=== PATIENT | male | born 1945 | race African-American/Black ===

== ENCOUNTER 2019-05-16 16:22 | Inpatient (IN) | payer MEDICARE, OTHER ==
[~2019-05-16] VITALS: Ht 182.9 cm; Wt 60.4 kg
[~2019-05-16 16:22] MED LIST: BENAZEPRIL HCL10 MG ORAL; CARVEDILOL3.125 MG ORAL; COUMADIN3 MG ORAL; LIPITOR40 MG ORAL; MULTIVITAMINS1 EAC6 ORAL; RANITIDINE HCL150 M2 PO; UNOBMED; WARFARIN SODIUM6 MG ORAL
[2019-05-16 20:00] VITALS: BP 137/80
[2019-05-17] VITALS: BP 146/82
[2019-05-17 04:00] VITALS: BP 129/76
[2019-05-17 07:09] LABS: BASOPHILS % (AUTO) 0.8 % (0.0-2.0); EOSINOPHILS % (AUTO) 1.7 % (0.0-3.0); HEMATOCRIT 30.3 % (42.0-52.0); HEMOGLOBIN 10.1 G/DL (14.2-18.0); LYMPHOCYTES % (AUTO) 15.7 % (20.0-45.0); MEAN CORPUSCULAR VOLUME 87 FL (80-99); MONOCYTES % (AUTO) 12.8 % (1.0-10.0); PLATELET COUNT 314 K/UL (150-450); RED CELL DISTRIBUTION WIDTH 12.9 % (11.6-14.8); WHITE BLOOD COUNT 6.7 K/UL (4.8-10.8)
[2019-05-17 07:23] LABS: ALANINE AMINOTRANSFERASE 26 U/L (12-78); ALBUMIN 3.2 G/DL (3.4-5.0); ALBUMIN/GLOBULIN RATIO 0.9 (1.0-2.7); ALKALINE PHOSPHATASE 90 U/L (46-116); ANION GAP 10 mmol/L (5-15); ASPARTATE AMINO TRANSFERASE 24 U/L (15-37); BLOOD UREA NITROGEN 12 mg/dL (7-18); CALCIUM 9.1 MG/DL (8.5-10.1); CARBON DIOXIDE 24 MMOL/L (21-32); CHLORIDE 93 MMOL/L (98-107); CREATININE 1.1 MG/DL (0.55-1.30); POTASSIUM 4.4 MMOL/L (3.5-5.1); SODIUM 126 MMOL/L (136-145)
[2019-05-17 08:00] VITALS: BP 154/91
[2019-05-17] MEDS ORDERED: Docusate 250mg cap ORAL SCH (09:00)
[2019-05-17] MEDS: Docusate 100mg cap ORAL SCH (09:36)
[2019-05-17] MEDS: Xarelto 10mg tab ORAL SCH (09:37)
[2019-05-17] MEDS: Miralax 17gm pkt ORAL SCH (09:43)
[2019-05-17 12:00] VITALS: BP 145/61
[2019-05-17 16:00] VITALS: BP 141/61
[2019-05-17 18:19] LABS: APPEARANCE,URINE CLEAR; BILIRUBIN, URINE NEGATIVE (NEGATIVE); GLUCOSE, URINE (UA) NEGATIVE (NEGATIVE); KETONES,URINE 1+ (NEGATIVE); LEUKOCYTE ESTERASE ,URINE 3+ (NEGATIVE); NITRITE,URINE POSITIVE (NEGATIVE); PH,URINE 5 (4.5-8.0); PROTEIN,URINE NEGATIVE (NEGATIVE); UROBILINOGEN,URINE NORMAL MG/DL (0.0-1.0)
[2019-05-17 18:27] LABS: COLOR,URINE YELLOW
[2019-05-17 20:00] VITALS: BP 159/89
[2019-05-17] MEDS ORDERED: Atorvastatin 20mg tab ORAL SCH (21:00)
[2019-05-18] VITALS: BP 148/84
[2019-05-18] MEDS: cefTRIAXone 1 GM in D5W 55 ML IVPB SCH (02:25)
[2019-05-18 04:00] VITALS: BP 144/88
[2019-05-18 08:00] VITALS: BP 152/99
[2019-05-18] MEDS: Xarelto 10mg tab ORAL SCH (08:56)
[2019-05-18] MEDS: Miralax 17gm pkt ORAL SCH (08:56)
[2019-05-18] MEDS: Docusate 100mg cap ORAL SCH (08:56)
--- NOTE | 2019-05-18 08:56 | General Progress Note ---
Assessment/Plan Problem List: (1) Episode of generalized weakness ICD Codes: R53.1 - Weakness SNOMED: 43156635 (2) Renal failure (ARF), acute on chronic ICD Codes: N17.9 - Renal failure (ARF), acute on chronic; N18.9 - Chronic kidney disease, unspecified SNOMED: 198212402 (3) Encephalopathy acute ICD Codes: G93.40 - Encephalopathy acute SNOMED: 2485835 (4) Episode of generalized weakness ICD Codes: R53.1 - Weakness SNOMED: 62208325 (5) Renal failure (ARF), acute on chronic ICD Codes: N17.9 - Acute kidney failure, unspecified; N18.9 - Chronic kidney disease, unspecified SNOMED: 379704073 (6) Stroke ICD Codes: I63.9 - Cerebral infarction, unspecified SNOMED: 169764978 Status: stable Assessment/Plan: speech rx await mri on xarelto pt/ot consider eeg Subjective ROS Limited/Unobtainable: No Constitutional: Reports: malaise, weakness HEENT: Reports: no symptoms Cardiovascular: Reports: no symptoms Respiratory: Reports: cough Gastrointestinal/Abdominal: Reports: no symptoms Genitourinary: Reports: no symptoms Neurologic/Psychiatric: Reports: pre-existing deficit Endocrine: Reports: no symptoms Hematologic/Lymphatic: Reports: no symptoms Allergies: Coded Allergies: No Known Allergies (Unverified , 05/27/14) All Systems: reviewed and negative except above Subjective no events. no change. no events. waiting for head ct. remains withdrawn and less verbal than baseline. labs noted. Objective Last 24 Hour Vital Signs Date Time Temp Pulse Resp B/P (MAP) Pulse Ox O2 Delivery O2 Flow Rate FiO2 05/18/19 04:00 97.0 94 18 144/88 (106) 96 05/18/19 04:00 102 05/18/19 00:00 102 05/18/19 00:00 97.4 101 19 148/84 (105) 98 05/17/19 21:00 Room Air 05/17/19 20:48 103 159/89 05/17/19 20:00 103 05/17/19 20:00 98.0 99 18 159/89 (112) 98 05/17/19 16:00 101 05/17/19 16:00 98.6 80 20 141/61 (87) 98 05/17/19 12:00 88 05/17/19 12:00 97.8 89 18 145/61 (89) 98 05/17/19 09:44 86 154/91 05/17/19 09:43 154/91 05/17/19 09:00 Room Air Intake and Output 05/17/19 05/18/19 19:00 07:00 Intake Total 240 ml Output Total 200 ml 450 ml Balance 40 ml -450 ml Intake Oral 240 ml Output Urine Total 200 ml 450 ml Laboratory Tests 05/17/19 17:40: Urine Color Yellow, Urine Appearance Clear, Urine pH 5, Urine Specific Ozan 1.015, Urine Protein Negative, Urine Glucose (UA) Negative, Urine Ketones 1+H, Urine Blood Negative, Urine Nitrite PositiveH, Urine Bilirubin Negative, Urine Urobilinogen Normal, Urine Leukocyte Esterase 3+H, Urine RBC 2-4H, Urine WBC 5- 10H, Urine Squamous Epithelial Cells None, Urine Bacteria ManyH Height (Feet): 6 Weight (Pounds): 133 General Appearance: WD/WN, alert, confused Neck: supple Cardiovascular: normal rate Respiratory/Chest: chest wall non-tender, lungs clear, normal breath sounds, no respiratory distress, no accessory muscle use Abdomen: normal bowel sounds, non tender, soft, no organomegaly Edema: no edema noted Arm (L), no edema noted Arm (R), no edema noted Leg (L), no edema noted Leg (R), no edema noted Pedal (L), no edema noted Pedal (R), no edema noted Generalized Neurologic: motor weakness Alejo Green MD May 18, 2019 08:56
--- NOTE | 2019-05-18 10:44 | Diagnostic Imaging Report ---
Indication: Headache Technique: Contiguous 5 mm thick transaxial imaging of the head obtained in a Siemens Sensation [address] scanner. Soft tissue and bone windows generated. Automatic Exposure Control was utilized. Total Dose length Product (DLP): 1354.[address] Dose Index Volume (CTDIvol): 70.38 mGy Comparison: 05/27/2014 Findings: There is moderate prominence of the ventricles, basal cisterns, and cerebral sulci consistent with atrophy. Moderate, nonspecific, white matter hypoattenuation is noted throughout the brain consistent with chronic small vessel disease. There is bioccipital encephalomalacia consistent with old infarcts also seen previously. There is no midline shift, edema, acute hemorrhage, mass effect, or abnormal extra-axial fluid collections. Bones are unremarkable. Impression: No acute intracranial bleed, mass effect or edema. Old occipital infarcts Moderate atrophy of the brain. Evidence of chronic small vessel disease involving white matter tracts. The CT scanner at [facility] is accredited by the [employer] and the scans are performed using dose optimization techniques as appropriate to a performed exam including Automatic Exposure control.
--- NOTE | 2019-05-18 11:12 | Cardiology Report ---
APPROVED REPORT EKG Measurement Heart [id number] Normal sinus rhythm Left anterior fascicular block Inferior infarct, age undetermined Anteroseptal infarct, age undetermined Abnormal ECG
[2019-05-18 12:00] VITALS: BP 138/85
[2019-05-18 16:00] VITALS: BP 155/89
--- NOTE | 2019-05-18 16:55 | History and Physical Report ---
DATE OF ADMISSION: 05/16/2019 CHIEF COMPLAINT: Altered mental status, toxic metabolic encephalopathy, rule out stroke. HISTORY OF PRESENT ILLNESS: The patient is a pleasant 74-year-old male, well known to me. He has a history of prior stroke, LV thrombus, chronic kidney disease, anemia, hypertensive heart disease, and dementia. He was noted at the snf facility to be less responsive and verbal. According to staff, they have noted that he has been unable to assist with transfer and he has required one-on-one feeding. Previously, the patient was independent with transfers and independent with eating. The patient is otherwise without complaints. He denies any weakness or numbness. His speech is fluent. PAST MEDICAL HISTORY: As above. PAST SURGICAL HISTORY: None. CURRENT MEDICATIONS: Reconciled and reviewed. ALLERGIES: None. FAMILY HISTORY: None. SOCIAL HISTORY: There is no known history of tobacco, ethanol, or drugs. REVIEW OF SYSTEMS: GENERAL: No fevers or chills. HEENT: No headaches. CARDIOPULMONARY: No chest pain and shortness of breath. GASTROINTESTINAL: No nausea or vomiting. GENITOURINARY: No urgency or frequency. MUSCULOSKELETAL: No joint pain or swelling. NEUROLOGIC: No evidence of seizures. PHYSICAL EXAMINATION: VITAL SIGNS: Temperature 97.8, pulse 89, respirations 18, blood pressure 145/61. GENERAL: The patient is a well-developed male, in no apparent distress. HEART: Regular rate and rhythm. LUNGS: Clear. ABDOMEN: Soft, nontender, and nondistended. EXTREMITIES: Without clubbing, cyanosis, or edema. The patient has hemiparesis noted. LABORATORY DATA: Sodium is 126. White count 6, hemoglobin 10. ASSESSMENT: This is an unfortunate male admitted with complaints of altered mental status, possibly secondary to hyponatremia, cannot rule out acute stroke. The patient has a history of hypertension, LV thrombus, chronic kidney disease. PLAN: Hydration with normal saline. CT scan of the head. Check urinalysis. Cardiology consultation to assist with the patient's antihypertensive regimen. We will continue the patient's Coumadin. Plan of care has been discussed with the patient's sister. Alejo Green M.D. DR: SPIKE JOB#: [id number] CC:
--- NOTE | 2019-05-18 16:56 | Progress Note ---
DATE: 05/17/2019 CARDIOLOGY PROGRESS NOTE SUBJECTIVE: Still withdrawn but alert. PHYSICAL EXAMINATION: VITAL SIGNS: Blood pressure 154/91, pulse 86, respiratory rate 18, no fevers. HEENT: Temporal wasting. Oropharynx clear. NECK: Supple. LUNGS: Clear. CARDIAC: Regular. Normal S1 and S2. A 1/6 systolic murmur at apex. ABDOMEN: Soft. No edema. LABORATORY AND DIAGNOSTIC DATA: White count 6.7, hemoglobin 10.1. Sodium 126 potassium 4.4, chloride 93, bicarb 24, BUN 12, and creatinine 1.1. Albumin 3.2. Urinalysis with 5 to 10 white cells. IMPRESSION: 1. Toxic encephalopathy. 2. Metabolic encephalopathy. 3. Urinary tract infection. 4. Cerebrovascular disease with history of prior cerebrovascular accident. 5. 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 6. History of left ventricular thrombus. PLAN: 1. Saline hydration. 2. Await EKG. 3. Continue Full anticoagulation. 4. Await results of imaging. 5. Empiric antimicrobials. 6. Avoid tight blood pressure control and orthostatic potential. 7. Check metabolic profile. John Levine M.D. DR: Dinorah JOB#: [id number] CC:
--- NOTE | 2019-05-18 16:56 | Consultation ---
DATE OF CONSULTATION: 05/16/2019 CARDIOLOGY CONSULTATION REASON FOR CONSULTATION: Altered mentation in the setting of ischemic and hypertensive cardiomyopathy. HISTORY OF PRESENT ILLNESS: This is a 74-year-old male. He has been weak and lethargic for the past several days. His appetite has been poor. He has not been as mobile as usual and has not been mobilizing at all. He does have a prior history of cerebrovascular disease and is on chronic anticoagulation due to significant cardiac disease. He was transferred to the hospital for further evaluation and management. PAST MEDICAL HISTORY: 1. Hypertension. 2. Coronary artery disease. 3. Paroxysmal atrial fibrillation. 4. Left ventricular thrombus. 5. History of DVT. 6. History of CVA. 7. COPD. 8. Dementia. 9. Anemia of chronic kidney disease. MEDICATIONS: Prior to admission, reviewed and reconciled. ALLERGIES: None. FAMILY HISTORY: Notable for hypertension. SOCIAL HISTORY: Prior smoker and social alcohol use in the past. No substance abuse. REVIEW OF SYSTEMS: No fevers or chills. No cough or sputum production. No history of elevated PSA. He is on anticoagulation with rivaroxaban. There is no history of seizures. He has had a prior stroke. His most recent echocardiogram revealed a diminished ejection fraction in the range of 45 to 50 percent. There is a history of left ventricular thrombus in the past as well as atrial arrhythmias. The patient has not had any change in bowel habits. No noted melena or bright red blood per rectum. PHYSICAL EXAMINATION: GENERAL: Alert, but withdrawn. VITAL SIGNS: Blood pressure 137/80, pulse 89, respirations 17, afebrile, and oxygen saturation on room air 100%. HEENT: Normocephalic and atraumatic. Conjunctiva pink. Arcus senilis. Oropharynx clear. NECK: Supple. LUNGS: Clear. CARDIAC: Regular rhythm and rate. Normal S1, S2. A 1/6 systolic murmur at apex. ABDOMEN: Soft and nontender. EXTREMITIES: No edema. Mild dysarthria. Gait is not assessed. IMPRESSION: 1. Encephalopathy, etiology unclear. 2. Cerebrovascular disease. 3. Coagulopathy due to rivaroxaban. 4. Ischemic and hypertensive cardiomyopathy. 5. History of atrial tachyarrhythmias. 6. History of left ventricular thrombus. 7. History of cerebrovascular accident. PLAN: 1. Obtain laboratory studies. 2. Monitor blood pressure and orthostatics. 3. Continue full anticoagulation. 4. Obtain imaging studies of the brain. 5. Review laboratory studies. 6. Further recommendations will follow. John Levine M.D. DR: EDWARD JOB#: [id number] CC:
[2019-05-18 20:00] VITALS: BP 138/107
[2019-05-18] MEDS: Atorvastatin 20mg tab ORAL SCH (22:32)
[2019-05-19] VITALS: BP 155/95
[2019-05-19] MEDS: cefTRIAXone 1 GM in D5W 55 ML IVPB SCH (00:32)
--- NOTE | 2019-05-19 01:45 | Progress Note ---
DATE: 05/18/2019 CARDIOLOGY PROGRESS NOTE SUBJECTIVE: The patient remains withdrawn, lethargic, but more alert. He has no specific complaints, but does feel weak. CAT scan of the brain revealed microvascular disease, prior occipital infarct, and no acute process. Urine culture is positive for gram-negative rods. OBJECTIVE: VITAL SIGNS: Blood pressure 138/107, pulse 105, respirations 19, afebrile. HEENT: Temporal wasting. Dysarthria. LUNGS: Diminished breath sounds. CARDIAC: Regular rhythm and rate. Normal S1, S2. A 1/6 systolic apical murmur. ABDOMEN: Soft. EXTREMITIES: No edema. IMPRESSION: 1. UTI. 2. Sepsis. 3. Toxic and metabolic encephalopathies. 4. Anemia of chronic disease. 5. Hypovolemia. 6. Hyponatremia. 7. Hypochloremia. 8. Ischemic heart disease with history of left ventricular thrombus. 9. Coagulopathy due to apixaban. PLAN: 1. Saline hydration. 2. Antimicrobials. 3. Await final cultures. 4. Continue full anticoagulation. 5. Recheck laboratory studies and metabolic profile. John Levine M.D. DR: JACKI JOB#: [id number] CC:
[2019-05-19 04:00] VITALS: BP 124/77
[2019-05-19 07:00] LABS: ALANINE AMINOTRANSFERASE 21 U/L (12-78); ALBUMIN/GLOBULIN RATIO 0.8 (1.0-2.7); ALKALINE PHOSPHATASE 81 U/L (46-116); ANION GAP 9 mmol/L (5-15); ASPARTATE AMINO TRANSFERASE 22 U/L (15-37); BILIRUBIN,TOTAL 0.8 MG/DL (0.2-1.0); BLOOD UREA NITROGEN 10 mg/dL (7-18); CALCIUM 8.8 MG/DL (8.5-10.1); CARBON DIOXIDE 24 MMOL/L (21-32); CHLORIDE 95 MMOL/L (98-107); CHOLESTEROL 95 MG/DL (< 200); CREATINE KINASE 88 U/L (26-308); HDL CHOLESTEROL 46 MG/DL (40-60); POTASSIUM 4.2 MMOL/L (3.5-5.1); SODIUM 128 MMOL/L (136-145); TRIGLYCERIDES 32 MG/DL (30-150)
[2019-05-19 07:57] VITALS: BP 145/84
[2019-05-19] MEDS: Miralax 17gm pkt ORAL SCH (08:10)
[2019-05-19] MEDS: Xarelto 10mg tab ORAL SCH (08:12)
[2019-05-19] MEDS: Docusate 100mg cap ORAL SCH (08:12)
[2019-05-19 12:00] VITALS: BP 124/74
[2019-05-19 16:00] VITALS: BP 148/84
--- NOTE | 2019-05-19 17:32 | CDS Physician Query ---
Clarification is required for compliance, coding accuracy, and to reflect severity of illness for this patient Dear Dr. Alejo Geren Date: 05/19/2019 [employer] Economist/CDS Name: Hoa Santos Clinical Documentation States: HNP: This is an unfortunate male admitted with complaints of altered mental status, possibly secondary to hyponatremia, cannot rule out acute stroke. The patient has a history of hypertension, LV thrombus, chronic kidney disease. RD notes: Increased kcal and pro needs r/t underweight status as evidenced by pt w/ BMI underweight per guidelines, @72% ideal body weight w/ generalized moderate wasting. Labs/Care Trends: BMI 18.1, Albumin 3.0, A/G ratio 0.8 Please select the most appropriate option: [] Protein/Calorie Malnutrition [] Mild [] Moderate [x] Severe [x] Hypoalbuminemia [x] Cachexia [] Underweight [] Intestinal malabsorption [] Other [] Unable to determine [] Not Applicable Present on Admission: [x] Yes [] No [] Clinically Undetermined Physician signature Date Please also document in your Progress Notes and/or Discharge Summary and indicate if the condition was present on admission. MTDD
[2019-05-19] MEDS ORDERED: Sodium Chloride 1gm Tab ORAL SCH (18:00)
[2019-05-19 20:00] VITALS: BP 163/94
[2019-05-19] MEDS ORDERED: Doxazosin 1mg Tab ORAL SCH (21:00)
[2019-05-19] MEDS: Atorvastatin 20mg tab ORAL SCH (21:23)
[2019-05-19] MEDS ORDERED: Vitamin B12 1000mcg/ml Inj IM ONE (22:15)
--- NOTE | 2019-05-19 23:45 | Progress Note ---
DATE: 05/19/2019 CARDIOLOGY PROGRESS NOTE SUBJECTIVE: Still withdrawn, lethargic, and confused, but more alert. Oral intake is improved. Monitored rhythm, sinus and sinus tachycardia. OBJECTIVE: VITAL SIGNS: Blood pressure 163/94, temperature 98, respirations 20. LUNGS: Clear. CARDIAC: Regular rhythm and rate. Normal S1, S2 with a fourth heart sound. ABDOMEN: Soft. EXTREMITIES: No edema. NEUROLOGIC: With dysarthria and bilateral weakness. DIAGNOSTIC AND LABORATORY DATA: Urine culture is positive for E. coli, sensitive to all antibiotics. Sodium 128, potassium 4.2, bicarbonate 24, BUN 10, creatinine 1, albumin 3.0. B12 468. Folic acid 12.9. TSH 2.1. IMPRESSION: 1. Hyponatremia. 2. Escherichia coli urinary tract infection with sepsis. 3. Hypochloremia. 4. Mild protein-calorie malnutrition. 5. Folic acid deficiency deficiency. 6. Low normal B12 level. 7. Anemia of chronic disease. 8. Hypertensive cardiomyopathy. 9. Ischemic heart disease. 10. History of left ventricular thrombus. 11. Multi-infarct dementia. 12. Rivaroxaban-associated coagulopathy. PLAN: 1. Vitamin supplementation added. 2. Saline hydration. 3. Salt tabs. 4. No salt restriction. 5. Advance antihypertensive control. 6. Antimicrobials. 7. Respiratory hygiene. 8. Discontinue telemetry. John Levine M.D. DR: IVY JOB#: [id number] CC:
[2019-05-20] VITALS: BP 119/63
[2019-05-20] MEDS: cefTRIAXone 1 GM in D5W 55 ML IVPB SCH (01:02)
[2019-05-20 04:00] VITALS: BP 125/66
[2019-05-20 07:59] LABS: ALANINE AMINOTRANSFERASE 19 U/L (12-78); ALBUMIN 2.8 G/DL (3.4-5.0); ALBUMIN/GLOBULIN RATIO 0.9 (1.0-2.7); ALKALINE PHOSPHATASE 71 U/L (46-116); ANION GAP 8 mmol/L (5-15); ASPARTATE AMINO TRANSFERASE 18 U/L (15-37); BILIRUBIN,TOTAL 0.6 MG/DL (0.2-1.0); BLOOD UREA NITROGEN 8 mg/dL (7-18); CALCIUM 8.5 MG/DL (8.5-10.1); CARBON DIOXIDE 22 MMOL/L (21-32); CHLORIDE 97 MMOL/L (98-107); POTASSIUM 4.1 MMOL/L (3.5-5.1); SODIUM 127 MMOL/L (136-145)
[2019-05-20 08:00] VITALS: BP 125/73
[2019-05-20] MEDS: Sodium Chloride 1gm Tab ORAL SCH ×3 (09:09→17:09)
[2019-05-20] MEDS: Carvedilol 6.25mg Tab ORAL SCH ×2 (09:09→20:51)
[2019-05-20] MEDS: Miralax 17gm pkt ORAL SCH (09:10)
[2019-05-20] MEDS: Docusate 100mg cap ORAL SCH (09:10)
[2019-05-20] MEDS: Xarelto 10mg tab ORAL SCH (09:10)
--- NOTE | 2019-05-20 09:12 | General Progress Note ---
Assessment/Plan Problem List: (1) Episode of generalized weakness ICD Codes: R53.1 - Weakness SNOMED: 97660874 (2) Renal failure (ARF), acute on chronic ICD Codes: N17.9 - Renal failure (ARF), acute on chronic; N18.9 - Chronic kidney disease, unspecified SNOMED: 653005420 (3) Encephalopathy acute ICD Codes: G93.40 - Encephalopathy acute SNOMED: 9223937 (4) Episode of generalized weakness ICD Codes: R53.1 - Weakness SNOMED: 42335001 (5) Renal failure (ARF), acute on chronic ICD Codes: N17.9 - Acute kidney failure, unspecified; N18.9 - Chronic kidney disease, unspecified SNOMED: 992171513 (6) Stroke ICD Codes: I63.9 - Cerebral infarction, unspecified SNOMED: 824823488 Status: stable Assessment/Plan: speech rx ct neg on xarelto pt/ot hypertonic saline added consider eeg Subjective ROS Limited/Unobtainable: Yes Constitutional: Reports: malaise, weakness HEENT: Reports: no symptoms Cardiovascular: Reports: no symptoms Respiratory: Reports: no symptoms Gastrointestinal/Abdominal: Reports: difficulty swallowing Genitourinary: Reports: no symptoms Neurologic/Psychiatric: Reports: seizure Endocrine: Reports: no symptoms Hematologic/Lymphatic: Reports: anemia Allergies: Coded Allergies: No Known Allergies (Unverified , 05/27/14) All Systems: reviewed and negative except above Subjective no events. no change. no events. head ct neg. remains withdrawn and less verbal than baseline. labs noted. Na not any better. Objective Last 24 Hour Vital Signs Date Time Temp Pulse Resp B/P (MAP) Pulse Ox O2 Delivery O2 Flow Rate FiO2 05/20/19 08:00 97.5 92 18 125/73 (90) 98 05/20/19 04:00 87 05/20/19 04:00 98.2 99 19 125/66 (85) 98 05/20/19 00:00 89 05/20/19 00:00 98.3 103 18 119/63 (81) 97 05/19/19 21:24 90 163/94 05/19/19 21:00 Room Air 05/19/19 20:00 90 05/19/19 20:00 98.1 98 20 163/94 (117) 100 05/19/19 16:00 84 05/19/19 16:00 98.0 69 18 148/84 (105) 99 05/19/19 12:00 98.1 77 18 124/74 (91) 99 05/19/19 12:00 82 Intake and Output 05/19/19 05/20/19 19:00 07:00 Intake Total 440 ml 120 ml Output Total 1000 ml Balance 440 ml -880 ml Intake Oral 120 ml Other 440 ml Output Urine Total 1000 ml Laboratory Tests 05/20/19 07:20: Sodium Level 127L, Potassium Level 4.1, Chloride Level 97L, Carbon Dioxide Level 22, Anion Gap 8, Blood Urea Nitrogen 8, Creatinine 1.0, Estimat Glomerular Filtration Rate , Glucose Level 73L, Calcium Level 8.5, Total Bilirubin 0.6, Aspartate Amino Transf (AST/SGOT) 18, Alanine Aminotransferase ( ALT/SGPT) 19, Alkaline Phosphatase 71, Total Protein 6.0L, Albumin 2.8L, Globulin 3.2, Albumin/Globulin Ratio 0.9L Height (Feet): 6 Weight (Pounds): 133 General Appearance: WD/WN, alert, confused Neck: supple Cardiovascular: normal rate Respiratory/Chest: chest wall non-tender, lungs clear, normal breath sounds Edema: no edema noted Arm (L), no edema noted Arm (R), no edema noted Leg (L), no edema noted Leg (R), no edema noted Pedal (L), no edema noted Pedal (R), no edema noted Generalized Neurologic: motor weakness Alejo Green MD May 20, 2019 09:12
[2019-05-20 12:00] VITALS: BP 121/68
[2019-05-20 16:00] VITALS: BP 126/73
[2019-05-20 20:00] VITALS: BP 130/81
[2019-05-20] MEDS: Doxazosin 1mg Tab ORAL SCH (20:51)
[2019-05-20] MEDS: Atorvastatin 20mg tab ORAL SCH (20:51)
[2019-05-21] VITALS: BP 126/73
--- NOTE | 2019-05-21 03:30 | Progress Note ---
DATE: 05/20/2019 CARDIOLOGY PROGRESS NOTE SUBJECTIVE: The patient remains withdrawn. Still less verbal than baseline. Abnormal laboratory studies persists. OBJECTIVE: VITAL SIGNS: Blood pressure 125/73, pulse 92, respirations 18, and afebrile. GENERAL: Slow response time. Dysarthria. Bilateral motor dysfunction. LUNGS: Clear. CARDIAC: Regular. Normal S1, S2 with a 1/6 systolic apical murmur. ABDOMEN: Soft. EXTREMITIES: No edema. LABORATORY DATA: Sodium 127, potassium 4.1, chloride 97, bicarb 22, BUN 8, and creatinine 1. IMPRESSION: 1. Persistent hyponatremia with euvolemia. 2. Ischemic cardiomyopathy. 3. History of left ventricular thrombus. 4. Toxic and metabolic encephalopathy. 5. B12 and folate deficiencies. 6. Urinary tract infection with probable sepsis. PLAN: 1. Agree with 3% saline trial. 2. Check urine studies. 3. Continue current cardiovascular regimen. 4. Empiric antimicrobials for urinary tract infection. 5. Continue full anticoagulation. 6. Added vitamin supplementation. John Levine M.D. DR: EDWARD JOB#: [id number] CC:
[2019-05-21 04:00] VITALS: BP 131/73
--- NOTE | 2019-05-21 06:54 | General Progress Note ---
Assessment/Plan Problem List: (1) Episode of generalized weakness ICD Codes: R53.1 - Weakness SNOMED: 11136372 (2) Renal failure (ARF), acute on chronic ICD Codes: N17.9 - Renal failure (ARF), acute on chronic; N18.9 - Chronic kidney disease, unspecified SNOMED: 060325307 (3) Encephalopathy acute ICD Codes: G93.40 - Encephalopathy acute SNOMED: 1123098 (4) Episode of generalized weakness ICD Codes: R53.1 - Weakness SNOMED: 67498841 (5) Renal failure (ARF), acute on chronic ICD Codes: N17.9 - Acute kidney failure, unspecified; N18.9 - Chronic kidney disease, unspecified SNOMED: 327691087 (6) Stroke ICD Codes: I63.9 - Cerebral infarction, unspecified SNOMED: 944965243 Status: stable Assessment/Plan: speech rx/pt/ot ct neg on xarelto hypertonic saline given yesterday urine na follow up labs-pending. ?dc planning pending review of labs Subjective ROS Limited/Unobtainable: No Constitutional: Reports: malaise, weakness HEENT: Reports: no symptoms Cardiovascular: Reports: no symptoms Respiratory: Reports: no symptoms Gastrointestinal/Abdominal: Reports: no symptoms Genitourinary: Reports: no symptoms Neurologic/Psychiatric: Reports: pre-existing deficit Endocrine: Reports: no symptoms Hematologic/Lymphatic: Reports: no symptoms Allergies: Coded Allergies: No Known Allergies (Unverified , 05/27/14) All Systems: reviewed and negative except above Subjective remains withdrawn. slightly more verbal. still not at baseline. labs pending this am. Objective Last 24 Hour Vital Signs Date Time Temp Pulse Resp B/P (MAP) Pulse Ox O2 Delivery O2 Flow Rate FiO2 05/21/19 04:00 99.1 86 18 131/73 (92) 95 05/21/19 00:00 98.5 94 18 126/73 (90) 98 05/20/19 21:00 Room Air 05/20/19 20:51 89 130/81 05/20/19 20:00 99.2 89 20 130/81 (97) 98 05/20/19 16:00 97.7 78 20 126/73 (90) 99 05/20/19 12:00 97.5 87 20 121/68 (85) 99 05/20/19 09:09 92 125/73 05/20/19 09:09 125/73 05/20/19 09:00 Room Air 05/20/19 08:00 97.5 92 18 125/73 (90) 98 Intake and Output 05/20/19 05/21/19 18:59 06:59 Intake Total 360 ml 825 ml Output Total 450 ml 625 ml Balance -90 ml 200 ml Intake Oral 360 ml IV Total 825 ml Output Urine Total 450 ml 625 ml # Voids 4 Laboratory Tests 05/20/19 07:20: Sodium Level 127L, Potassium Level 4.1, Chloride Level 97L, Carbon Dioxide Level 22, Anion Gap 8, Blood Urea Nitrogen 8, Creatinine 1.0, Estimat Glomerular Filtration Rate , Glucose Level 73L, Calcium Level 8.5, Total Bilirubin 0.6, Aspartate Amino Transf (AST/SGOT) 18, Alanine Aminotransferase ( ALT/SGPT) 19, Alkaline Phosphatase 71, Total Protein 6.0L, Albumin 2.8L, Globulin 3.2, Albumin/Globulin Ratio 0.9L Height (Feet): 6 Weight (Pounds): 133 Objective General Appearance: WD/WN, alert, confused Neck: supple Cardiovascular: normal rate Respiratory/Chest: chest wall non-tender, lungs clear, normal breath sounds Edema: no edema noted Arm (L), no edema noted Arm (R), no edema noted Leg (L), no edema noted Leg (R), no edema noted Pedal (L), no edema noted Pedal (R), no edema noted Generalized Neurologic: motor weakness Alejo Green MD May 21, 2019 06:54
[2019-05-21 07:44] LABS: ANION GAP 10 mmol/L (5-15); BLOOD UREA NITROGEN 7 mg/dL (7-18); CALCIUM 8.6 MG/DL (8.5-10.1); CARBON DIOXIDE 22 MMOL/L (21-32); CHLORIDE 100 MMOL/L (98-107); POTASSIUM 4.1 MMOL/L (3.5-5.1); SODIUM 132 MMOL/L (136-145)
[2019-05-21 08:00] VITALS: BP 130/77
[2019-05-21] MEDS: Docusate 100mg cap ORAL SCH (09:01)
[2019-05-21] MEDS: Xarelto 10mg tab ORAL SCH (09:02)
[2019-05-21] MEDS: Sodium Chloride 1gm Tab ORAL SCH ×3 (09:02→17:13)
[2019-05-21] MEDS: Carvedilol 6.25mg Tab ORAL SCH (09:02)
[2019-05-21] MEDS: Miralax 17gm pkt ORAL SCH (09:02)
[2019-05-21 12:00] VITALS: BP 136/80
[2019-05-21 16:00] VITALS: BP 129/76
[2019-05-21 20:00] VITALS: BP 147/76
--- NOTE | 2019-05-21 22:30 | Progress Note ---
DATE: 05/21/2019 CARDIOLOGY PROGRESS NOTE SUBJECTIVE: The patient received 3% saline yesterday. He is slightly more alert, but still not at baseline with increased lethargy. No shortness of breath. OBJECTIVE: VITAL SIGNS: Blood pressure 131/73, pulse 86, respirations 18, and temperature 99.1. GENERAL: Dysarthria. LUNGS: Clear. CARDIAC: Regular, normal S1, S2 with a 1/6 systolic murmur at apex. ABDOMEN: Soft. EXTREMITIES: No edema. LABORATORY DATA: Sodium 133, potassium 4.1, BUN 7, and creatinine 1. IMPRESSION: No progress. PLAN: 1. Continue hypotonic IV fluids. 2. Antimicrobials. 3. Recheck lab studies. 4. Titrate antihypertensive regimen. 5. Cardioembolic prophylaxis with rivaroxaban. John Levine M.D. DR: ERAN JOB#: [id number] CC:
[2019-05-22] VITALS: BP 128/63
[2019-05-22] MEDS: cefTRIAXone 1 GM in D5W 55 ML IVPB SCH ×3 (00:18→23:13)
[2019-05-22] MEDS: Doxazosin 1mg Tab ORAL SCH ×2 (00:18→21:00)
[2019-05-22] MEDS: Atorvastatin 20mg tab ORAL SCH ×2 (00:19→22:57)
[2019-05-22] MEDS: Carvedilol 6.25mg Tab ORAL SCH ×3 (00:19→22:56)
[2019-05-22 04:00] VITALS: BP 128/70
[2019-05-22 08:00] VITALS: BP 117/69
[2019-05-22] MEDS: Miralax 17gm pkt ORAL SCH (08:37)
[2019-05-22] MEDS: Xarelto 10mg tab ORAL SCH (08:37)
[2019-05-22] MEDS: Docusate 100mg cap ORAL SCH (08:38)
[2019-05-22] MEDS: Sodium Chloride 1gm Tab ORAL SCH ×3 (08:38→17:48)
[2019-05-22 08:54] LABS: BASOPHILS % (AUTO) 1.4 % (0.0-2.0); EOSINOPHILS % (AUTO) 2.7 % (0.0-3.0); HEMATOCRIT 28.2 % (42.0-52.0); HEMOGLOBIN 9.4 G/DL (14.2-18.0); LYMPHOCYTES % (AUTO) 13.4 % (20.0-45.0); MEAN CORPUSCULAR VOLUME 87 FL (80-99); MONOCYTES % (AUTO) 10.7 % (1.0-10.0); NEUTROPHILS % (AUTO) 71.9 % (45.0-75.0); PLATELET COUNT 284 K/UL (150-450); RED BLOOD COUNT 3.25 M/UL (4.70-6.10); RED CELL DISTRIBUTION WIDTH 12.7 % (11.6-14.8); WHITE BLOOD COUNT 6.4 K/UL (4.8-10.8)
[2019-05-22 09:01] LABS: AMMONIA 20 umol/L (11-32)
[2019-05-22 09:12] LABS: ALANINE AMINOTRANSFERASE 18 U/L (12-78); ALBUMIN 2.7 G/DL (3.4-5.0); ALBUMIN/GLOBULIN RATIO 0.8 (1.0-2.7); ALKALINE PHOSPHATASE 74 U/L (46-116); ANION GAP 8 mmol/L (5-15); ASPARTATE AMINO TRANSFERASE 20 U/L (15-37); BILIRUBIN,TOTAL 0.7 MG/DL (0.2-1.0); BLOOD UREA NITROGEN 5 mg/dL (7-18); CALCIUM 8.4 MG/DL (8.5-10.1); CARBON DIOXIDE 24 MMOL/L (21-32); CHLORIDE 97 MMOL/L (98-107); CREATININE 0.9 MG/DL (0.55-1.30); SODIUM 129 MMOL/L (136-145)
[2019-05-22 12:00] VITALS: BP 125/76
--- NOTE | 2019-05-22 13:39 | General Progress Note ---
Assessment/Plan Problem List: (1) Episode of generalized weakness ICD Codes: R53.1 - Weakness SNOMED: 06465430 (2) Renal failure (ARF), acute on chronic ICD Codes: N17.9 - Renal failure (ARF), acute on chronic; N18.9 - Chronic kidney disease, unspecified SNOMED: 254877033 (3) Encephalopathy acute ICD Codes: G93.40 - Encephalopathy acute SNOMED: 8627027 (4) Episode of generalized weakness ICD Codes: R53.1 - Weakness SNOMED: 03211260 (5) Renal failure (ARF), acute on chronic ICD Codes: N17.9 - Acute kidney failure, unspecified; N18.9 - Chronic kidney disease, unspecified SNOMED: 304045246 (6) Stroke ICD Codes: I63.9 - Cerebral infarction, unspecified SNOMED: 369614553 Status: stable Assessment/Plan: speech rx/pt/ot ct neg on xarelto hypertonic saline ordered urine na oral sodium chloride repeat labs in am Subjective ROS Limited/Unobtainable: No Constitutional: Reports: malaise, weakness HEENT: Reports: no symptoms Cardiovascular: Reports: no symptoms Respiratory: Reports: no symptoms Gastrointestinal/Abdominal: Reports: no symptoms Genitourinary: Reports: no symptoms Neurologic/Psychiatric: Reports: pre-existing deficit Endocrine: Reports: no symptoms Hematologic/Lymphatic: Reports: anemia Allergies: Coded Allergies: No Known Allergies (Unverified , 05/27/14) All Systems: reviewed and negative except above Subjective remains withdrawn. slightly more verbal. still not at baseline. na worse this am Objective Last 24 Hour Vital Signs Date Time Temp Pulse Resp B/P (MAP) Pulse Ox O2 Delivery O2 Flow Rate FiO2 05/22/19 12:00 96.6 82 18 125/76 (92) 100 05/22/19 09:00 Room Air 05/22/19 08:38 78 117/69 05/22/19 08:38 117/69 05/22/19 08:00 97.0 78 18 117/69 (85) 100 05/22/19 04:00 98.2 80 18 128/70 (89) 100 05/22/19 00:19 78 147/76 05/22/19 00:00 98.7 79 18 128/63 (84) 99 05/21/19 21:00 Room Air 05/21/19 20:00 98.3 78 20 147/76 (99) 99 05/21/19 16:00 98.4 82 18 129/76 (93) 97 Intake and Output 05/21/19 05/22/19 18:59 06:59 Intake Total 935 ml 900 ml Balance 935 ml 900 ml Intake Oral 860 ml IV Total 75 ml 900 ml # Voids 7 Laboratory Tests 05/22/19 08:30: White Blood Count 6.4, Red Blood Count 3.25L, Hemoglobin 9.4L, Hematocrit 28.2L , Mean Corpuscular Volume 87, Mean Corpuscular Hemoglobin 29.0, Mean Corpuscular Hemoglobin Concent 33.4, Red Cell Distribution Width 12.7, Platelet Count 284, Mean Platelet Volume 5.9L, Neutrophils (%) (Auto) 71.9, Lymphocytes ( %) (Auto) 13.4L, Monocytes (%) (Auto) 10.7H, Eosinophils (%) (Auto) 2.7, Basophils (%) (Auto) 1.4, Sodium Level 129L, Potassium Level 4.0, Chloride Level 97L, Carbon Dioxide Level 24, Anion Gap 8, Blood Urea Nitrogen 5L, Creatinine 0.9, Estimat Glomerular Filtration Rate , Glucose Level 81, Calcium Level 8.4L, Magnesium Level 1.4L, Total Bilirubin 0.7, Aspartate Amino Transf ( AST/SGOT) 20, Alanine Aminotransferase (ALT/SGPT) 18, Alkaline Phosphatase 74, Ammonia 20, Pro-B-Type Natriuretic Peptide 2875H, Total Protein 6.0L, Albumin 2.7L, Globulin 3.3, Albumin/Globulin Ratio 0.8L Height (Feet): 6 Weight (Pounds): 133 Objective General Appearance: WD/WN, alert, confused Neck: supple Cardiovascular: normal rate Respiratory/Chest: chest wall non-tender, lungs clear, normal breath sounds Edema: no edema noted Arm (L), no edema noted Arm (R), no edema noted Leg (L), no edema noted Leg (R), no edema noted Pedal (L), no edema noted Pedal (R), no edema noted Generalized Neurologic: motor weakness Alejo Green MD May 22, 2019 13:39
[2019-05-22] MEDS ORDERED: NaCl 3% 500ml 250 ML IV ONE (14:30)
[2019-05-22 16:00] VITALS: BP 144/85
[2019-05-22 20:00] VITALS: BP 122/62
[2019-05-23] VITALS: BP 112/55
[2019-05-23 04:00] VITALS: BP 103/56
[2019-05-23 07:55] LABS: ANION GAP 8 mmol/L (5-15); BLOOD UREA NITROGEN 6 mg/dL (7-18); CALCIUM 8.2 MG/DL (8.5-10.1); CARBON DIOXIDE 24 MMOL/L (21-32); CHLORIDE 104 MMOL/L (98-107); SODIUM 136 MMOL/L (136-145)
[2019-05-23 08:00] VITALS: BP 135/62
[2019-05-23] MEDS: Docusate 100mg cap ORAL SCH (08:36)
[2019-05-23] MEDS: Miralax 17gm pkt ORAL SCH (08:40)
[2019-05-23] MEDS: Xarelto 10mg tab ORAL SCH (08:41)
[2019-05-23] MEDS: Carvedilol 6.25mg Tab ORAL SCH ×2 (08:41→20:28)
[2019-05-23] MEDS: Sodium Chloride 1gm Tab ORAL SCH ×3 (08:42→17:10)
[2019-05-23 12:00] VITALS: BP 133/70
--- NOTE | 2019-05-23 12:01 | General Progress Note ---
Assessment/Plan Problem List: (1) Episode of generalized weakness ICD Codes: R53.1 - Weakness SNOMED: 28391289 (2) Renal failure (ARF), acute on chronic ICD Codes: N17.9 - Renal failure (ARF), acute on chronic; N18.9 - Chronic kidney disease, unspecified SNOMED: 906900717 (3) Encephalopathy acute ICD Codes: G93.40 - Encephalopathy acute SNOMED: 7908868 (4) Episode of generalized weakness ICD Codes: R53.1 - Weakness SNOMED: 65611833 (5) Renal failure (ARF), acute on chronic ICD Codes: N17.9 - Acute kidney failure, unspecified; N18.9 - Chronic kidney disease, unspecified SNOMED: 684143060 (6) Stroke ICD Codes: I63.9 - Cerebral infarction, unspecified SNOMED: 506432027 Status: stable Assessment/Plan: speech rx/pt/ot ct neg on xarelto oral nacl dc planning Subjective ROS Limited/Unobtainable: No Constitutional: Reports: malaise, weakness HEENT: Reports: no symptoms Cardiovascular: Reports: no symptoms Respiratory: Reports: no symptoms Gastrointestinal/Abdominal: Reports: no symptoms Genitourinary: Reports: no symptoms Neurologic/Psychiatric: Reports: depressed, pre-existing deficit Endocrine: Reports: no symptoms Hematologic/Lymphatic: Reports: anemia Allergies: Coded Allergies: No Known Allergies (Unverified , 05/27/14) All Systems: reviewed and negative except above Subjective remains withdrawn. slightly more verbal. still not at baseline. NA level better now. Objective Last 24 Hour Vital Signs Date Time Temp Pulse Resp B/P (MAP) Pulse Ox O2 Delivery O2 Flow Rate FiO2 05/23/19 09:00 Room Air 05/23/19 08:42 135/62 05/23/19 08:41 69 135/62 05/23/19 08:00 98.4 69 20 135/62 (86) 97 05/23/19 04:00 99.2 84 18 103/56 (72) 97 05/23/19 00:00 98.8 79 17 112/55 (74) 99 05/22/19 22:56 74 122/62 05/22/19 21:00 Room Air 05/22/19 20:00 98.0 74 17 122/62 (82) 99 05/22/19 16:00 97.4 88 20 144/85 (104) 100 05/22/19 12:00 96.6 82 18 125/76 (92) 100 Intake and Output 05/22/19 05/23/19 18:59 06:59 Intake Total 1230 ml 120 ml Output Total 300 ml 550 ml Balance 930 ml -430 ml Intake Oral 480 ml 120 ml IV Total 750 ml Output Urine Total 300 ml 550 ml # Voids 7 # Bowel Movements 1 Laboratory Tests 05/23/19 06:55: Sodium Level 136, Potassium Level 4.0, Chloride Level 104, Carbon Dioxide Level 24, Anion Gap 8, Blood Urea Nitrogen 6L, Creatinine 1.0, Estimat Glomerular Filtration Rate , Glucose Level 81, Calcium Level 8.2L Height (Feet): 6 Weight (Pounds): 133 Objective General Appearance: WD/WN, alert, confused Neck: supple Cardiovascular: normal rate Respiratory/Chest: chest wall non-tender, lungs clear, normal breath sounds Edema: no edema noted Arm (L), no edema noted Arm (R), no edema noted Leg (L), no edema noted Leg (R), no edema noted Pedal (L), no edema noted Pedal (R), no edema noted Generalized Neurologic: motor weakness Alejo Green MD May 23, 2019 12:01
[2019-05-23 16:00] VITALS: BP 106/56
[2019-05-23 20:00] VITALS: BP 137/79
[2019-05-23] MEDS: Atorvastatin 20mg tab ORAL SCH (20:28)
[2019-05-23] MEDS: Doxazosin 1mg Tab ORAL SCH (20:29)
[2019-05-24] VITALS: BP 142/84
[2019-05-24 04:00] VITALS: BP 142/81
[2019-05-24] MEDS ORDERED: CARDURA1 MG ORAL (07:45)
[2019-05-24] MEDS ORDERED: SODIUM CHLORIDE1 GM ORAL (07:45)
[2019-05-24] MEDS ORDERED: COREG6.25 MG ORAL (07:45)
[2019-05-24] MEDS ORDERED: LIPITOR20 MG ORAL (07:45)
[2019-05-24] MEDS ORDERED: BENAZEPRIL HCL40 MG ORAL (07:45)
[2019-05-24 08:00] VITALS: BP 133/79
[2019-05-24] MEDS: Miralax 17gm pkt ORAL SCH (08:36)
[2019-05-24] MEDS: Carvedilol 6.25mg Tab ORAL SCH ×2 (08:36→21:00)
[2019-05-24] MEDS: Sodium Chloride 1gm Tab ORAL SCH ×3 (08:36→17:12)
[2019-05-24] MEDS: Docusate 100mg cap ORAL SCH (08:36)
[2019-05-24] MEDS: Xarelto 10mg tab ORAL SCH (08:37)
[2019-05-24 12:00] VITALS: BP 126/73
[2019-05-24 16:00] VITALS: BP 111/65
[2019-05-24 20:00] VITALS: BP 107/50
[2019-05-24] MEDS: Doxazosin 1mg Tab ORAL SCH (20:35)
[2019-05-24] MEDS: Atorvastatin 20mg tab ORAL SCH (20:35)
[2019-05-24] MEDS: cefTRIAXone 1 GM in D5W 55 ML IVPB SCH (22:06)
[2019-05-25] VITALS: BP 119/57
--- NOTE | 2019-05-25 01:15 | Discharge Summary ---
DATE OF ADMISSION: 05/20/2019 DATE OF DISCHARGE: 05/24/2019 ADMISSION DIAGNOSES: 1. Altered mental status. 2. Possible stroke. 3. Toxic metabolic encephalopathy. 4. Hypertension. 5. History of LV thrombus. DISCHARGE DIAGNOSES: 1. Altered mental status. 2. Possible stroke. 3. Toxic metabolic encephalopathy. 4. Hypertension. 5. History of LV thrombus. HOSPITAL COURSE: The patient is a pleasant male admitted with complaints of altered mental status, with initial concern was for stroke but head CT showed no evidence of any acute stroke. The patient was noted to be hyponatremic. He was given IV fluids without any improvement. He was placed on hypertonic saline. His sodium did improve, mental status seemed to improve with correction of his hyponatremia. On discharge, he was stable. The patient was [facility] to [facility] in stable condition. He will be followed up there in one to two days. DISCHARGE MEDICATIONS: Please see discharge medication list for discharge medications. DIET: Cardiac diet. ACTIVITIES: Ad-sydney. Alejo Green M.D. DR: SHANNON JOB#: [id number] CC:
--- NOTE | 2019-05-25 02:30 | Progress Note ---
DATE: 05/22/2019 CARDIOLOGY PROGRESS NOTE LATE ENTRY SUBJECTIVE: Withdrawn, more verbal, still with abnormal laboratory studies. OBJECTIVE: VITAL SIGNS: Blood pressure 128/70, heart rate 78, and respiratory rate 18. GENERAL: Baseline neurologic deficits with dysarthria. LUNGS: Clear. CARDIAC: Regular. Normal S1 and S2. ABDOMEN: Soft. EXTREMITIES: No edema. LABORATORY DATA: White count 6.4 and hemoglobin 9.4. Sodium 129, potassium 4, BUN 5, creatinine 0.9, and magnesium 1.4. IMPRESSION: 1. Hyponatremia. 2. Hypomagnesemia. 3. Metabolic encephalopathy. 4. Ischemic cardiomyopathy. 5. History of left ventricular thrombus. PLAN: 1. Additional 3% saline ____ magnesium replacement to follow. 2. Full anticoagulation for cardioembolic prophylaxis. 3. Continue current anti-failure regimen. John Levine M.D. DR: EDWIN JOB#: [id number] CC:
[2019-05-25 04:00] VITALS: BP 134/73
[2019-05-25 08:00] VITALS: BP 135/70
[2019-05-25] MEDS: Miralax 17gm pkt ORAL SCH (09:00)
[2019-05-25] MEDS: Docusate 100mg cap ORAL SCH (09:31)
[2019-05-25] MEDS: Xarelto 10mg tab ORAL SCH (09:31)
[2019-05-25] MEDS: Carvedilol 6.25mg Tab ORAL SCH (09:31)
[2019-05-25] MEDS: Sodium Chloride 1gm Tab ORAL SCH ×2 (09:45→13:00)
--- NOTE | 2019-05-25 10:37 | General Progress Note ---
Assessment/Plan Problem List: (1) Episode of generalized weakness ICD Codes: R53.1 - Weakness SNOMED: 94383482 (2) Renal failure (ARF), acute on chronic ICD Codes: N17.9 - Renal failure (ARF), acute on chronic; N18.9 - Chronic kidney disease, unspecified SNOMED: 675280690 (3) Encephalopathy acute ICD Codes: G93.40 - Encephalopathy acute SNOMED: 1910220 (4) Episode of generalized weakness ICD Codes: R53.1 - Weakness SNOMED: 06111887 (5) Renal failure (ARF), acute on chronic ICD Codes: N17.9 - Acute kidney failure, unspecified; N18.9 - Chronic kidney disease, unspecified SNOMED: 812749367 (6) Stroke ICD Codes: I63.9 - Cerebral infarction, unspecified SNOMED: 891689323 Status: stable Assessment/Plan: speech rx/pt/ot ct neg on xarelto oral nacl dc planning Subjective ROS Limited/Unobtainable: No Constitutional: Reports: malaise, weakness HEENT: Reports: no symptoms Cardiovascular: Reports: no symptoms Respiratory: Reports: no symptoms Gastrointestinal/Abdominal: Reports: no symptoms Genitourinary: Reports: no symptoms Neurologic/Psychiatric: Reports: pre-existing deficit Endocrine: Reports: no symptoms Hematologic/Lymphatic: Reports: no symptoms Allergies: Coded Allergies: No Known Allergies (Unverified , 05/27/14) All Systems: reviewed and negative except above Subjective remains withdrawn. slightly more verbal. still not at baseline. NA level better now. was not discharged yesterday because no intake available at [facility] Objective Last 24 Hour Vital Signs Date Time Temp Pulse Resp B/P (MAP) Pulse Ox O2 Delivery O2 Flow Rate FiO2 05/25/19 09:31 70 135/70 05/25/19 09:31 135/70 05/25/19 08:25 Room Air 05/25/19 08:00 97.6 70 18 135/70 (91) 92 05/25/19 04:00 98.1 81 20 134/73 (93) 99 05/25/19 00:00 98.2 80 20 119/57 (77) 98 05/24/19 21:00 Room Air 05/24/19 21:00 78 104/52 05/24/19 20:00 98.6 77 20 107/50 (69) 99 05/24/19 16:00 98.5 86 20 111/65 (80) 98 05/24/19 12:00 97.6 85 20 126/73 (90) 98 Intake and Output 05/24/19 05/25/19 19:00 07:00 Intake Total 360 ml 60 ml Output Total 250 ml 360 ml Balance 110 ml -300 ml Intake Oral 360 ml 60 ml Output Urine Total 250 ml 360 ml # Voids 3 1 # Bowel Movements 1 Height (Feet): 6 Weight (Pounds): 133 Objective General Appearance: WD/WN, alert, confused Neck: supple Cardiovascular: normal rate Respiratory/Chest: chest wall non-tender, lungs clear, normal breath sounds Edema: no edema noted Arm (L), no edema noted Arm (R), no edema noted Leg (L), no edema noted Leg (R), no edema noted Pedal (L), no edema noted Pedal (R), no edema noted Generalized Neurologic: motor weakness Alejo Green MD May 25, 2019 10:37
[2019-05-25 12:00] VITALS: BP 107/56
--- NOTE | 2019-05-25 21:00 | Progress Note ---
DATE: 05/24/2019 CARDIOLOGY PROGRESS NOTE SUBJECTIVE: The patient has less confusion and is close to the baseline. Vitals are stable. OBJECTIVE: VITAL SIGNS: Blood pressure 126/73, heart rate 85, respiratory rate 20. LUNGS: Clear. CARDIAC: Regular. Normal S1, S2 with a 1/6 systolic murmur at the apex. ABDOMEN: Soft. EXTREMITIES: No edema. IMPRESSION: 1. UTI with sepsis and associated toxic and metabolic encephalopathy. 2. Ischemic cardiomyopathy with history of left ventricular thrombus. 3. Coagulopathy due to rivaroxaban. 4. Cerebrovascular disease with dementia. 5. Hyponatremia, improved. PLAN: 1. Continue salt tabs. 2. Continue current antihypertensive regimen. 3. Monitor electrolytes. 4. Maintain full anticoagulation. Jhon Levine M.D. DRJoanne Mendez JOB#: [id number] CC:
--- NOTE | 2019-05-25 22:00 | Progress Note ---
DATE: 05/25/2019 CARDIOLOGY PROGRESS NOTE SUBJECTIVE: Discharge planning noted. The patient without shortness of breath. OBJECTIVE: VITAL SIGNS: Stable. Blood pressure 135/70, pulse 70, and respirations 18. LUNGS: Clear. CARDIAC: Regular. No new murmur. ABDOMEN: Soft. EXTREMITIES: No edema. IMPRESSION: 1. Toxic and metabolic encephalopathies, improved. 2. UTI with sepsis, recovered. 3. Acute on chronic diastolic congestive heart failure, compensated. 4. Moderate protein-calorie malnutrition, on supplements. 5. Hyponatremia, improved. 6. Euvolemia noted. 7. Hypomagnesemia, status post replacement therapy. PLAN: 1. Stable for further recovery and monitoring at [facility] facility. 2. Discharge medication regimen reviewed. John Levine M.D. DR: EDWARD JOB#: [id number] CC:
--- NOTE | 2019-05-25 22:45 | Progress Note ---
DATE: 05/23/2019 CARDIOLOGY PROGRESS NOTE SUBJECTIVE: Case reviewed with Dr. Green. The patient is still not at baseline mentation. He is still withdrawn and lethargic. Sodium level continues to remain low at times despite 3% saline infusion. Salt tabs have been started with some response. OBJECTIVE: VITAL SIGNS: Blood pressure 135/62, heart rate 69, respiratory rate 20. GENERAL: Exam unchanged. PLAN: To observe response to oral sodium tablets, monitoring volume status and electrolyte levels in addition to continue current cardiovascular regimen and observe cardiorenal function. We will also maintain rivaroxaban for cardioembolic prophylaxis in view of history of left ventricular thrombus. John Levine M.D. DR: Vanessa JOB#: [id number] CC:
== END 2019-05-25 14:36 | DRG 640 ==
LOC: 2E 19:51 → 4E 05-20 06:19
DX: E87.1 Hypo-osmolality and hyponatremia (principal); I63.9 Cerebral infarction, unspecified; G92 Toxic encephalopathy; E43 Unspecified severe protein-calorie malnutrition; N17.9 Acute kidney failure, unspecified; D68.4 Acquired coagulation factor deficiency; N39.0 Urinary tract infection, site not specified; Z68.1 Body mass index [BMI] 19.9 or less, adult; I25.5 Ischemic cardiomyopathy; I48.0 Paroxysmal atrial fibrillation; B96.20 Unspecified Escherichia coli [E. coli] as the cause of diseases classified elsewhere; I13.10 Hypertensive heart and chronic kidney disease without heart failure, with stage 1 through stage 4 chronic kidney disease, or unspecified chronic kidney disease; F01.50 Vascular dementia, unspecified severity, without behavioral disturbance, psychotic disturbance, mood disturbance, and anxiety; N18.9 Chronic kidney disease, unspecified; I25.10 Atherosclerotic heart disease of native coronary artery without angina pectoris; Z86.718 Personal history of other venous thrombosis and embolism; Z79.01 Long term (current) use of anticoagulants; Z86.73 Personal history of transient ischemic attack (TIA), and cerebral infarction without residual deficits; E86.1 Hypovolemia; E87.8 Other disorders of electrolyte and fluid balance, not elsewhere classified; R53.1 Weakness; E83.42 Hypomagnesemia
CPT/HCPCS: 36415; 70450; 80048; 80053; 80061; 81003; 82140; 82550; 82607; 82746; 83735; 83880; 84443; 85025; 87081; 87086; 87181; 93005

== ENCOUNTER 2020-08-11 22:28 | Inpatient (IN) | payer MEDICARE, OTHER ==
[~2020-08-11] VITALS: Ht 172.7 cm; Wt 69.9 kg
[~2020-08-11 22:28] MED LIST changes: +BENAZEPRIL HCL40 MG ORAL; +CARDURA1 MG ORAL; +COREG6.25 MG ORAL; +LIPITOR20 MG ORAL; +SODIUM CHLORIDE1 GM ORAL
[2020-08-11 22:30] VITALS: BP 122/66
--- NOTE | 2020-08-11 22:30 | NUR ---
ED Nurse Note: pt JUAN JOSE COYLE from [facility] d/t fever 101.6 and SOB at facility. Pt was given Tylenol at facility before arrival. [facility] noted temp of 101. Per report pt was tested for COVID on friday but results are pending. On arrival pt is AAOx1, breathing even and unlabored with occasional cough. Temperature 98.7. Other vitals stable as documented.
[2020-08-11] MEDS ORDERED: FERROUSUL325 M1 PO (22:38)
[2020-08-11] MEDS ORDERED: OMEPRAZOLE20 M3 ORAL (22:38)
[2020-08-11] MEDS ORDERED: Vancomycin 1 GM in NS 275 ML IV ONE (22:45)
[2020-08-11] MEDS ORDERED: Cefepime HCl 2 GM in NS 110 ML IV ONE (22:45)
--- NOTE | 2020-08-11 22:46 | Emergency Room Report ---
History of Present Illness General Chief Complaint: Fever Source: EMS Present Illness HPI Patient is a 75-year-old male brought in by basic ambulance from [facility]. Patient been sent in after having developed a fever. Had recent coronavirus testing which did not have results. Patient denies any current complaints. He is a very poor historian. Patient is chronically debilitated due to a stroke. patient has history of encephalopathy. Had some nonproductive cough. He is currently taking Coumadin. 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 COVID-19 Screening: PUI COVID-19 COVID-19 Testing Source: AT FACILITY, PENDING Patient History Past Medical History: see triage record Reviewed Nursing Documentation: PMH: Agreed; PSxH: Agreed Nursing Documentation-PMH Hx Cardiac Problems: Yes Hx Hypertension: Yes Hx Pacemaker: No Hx Asthma: No Hx COPD: No Hx Diabetes: No Hx Cancer: No Hx Gastrointestinal Problems: Yes Hx Dialysis: No Hx Neurological Problems: Yes Hx Cerebrovascular Accident: Yes Hx Dementia: Yes Hx Seizures: No Hx Weakness: Yes Review of Systems All Other Systems: limited - Review of systems: Review systems is limited by patient's being a poor historian Physical Exam Vital Signs Date Time Temp Pulse Resp B/P (MAP) Pulse Ox O2 Delivery O2 Flow Rate FiO2 08/11/20 22:26 101.3 86 18 112/68 (83) 96 Room Air General Appearance: alert, Chronically Ill Eyes: bilateral eye PERRL ENT: hearing grossly normal Neck: limited range of motion Respiratory: lungs clear Cardiovascular #1: normal peripheral pulses, no edema Gastrointestinal: non tender, soft, no guarding Musculoskeletal: other - Left upper extremity contracture, lower extremity con tractures Neurologic: alert, oriented - Oriented to name only does not know the year , motor weakness - Upper extremity motor weakness, bilateral lower extremity lower motor weakness Psychiatric: normal inspection Skin: no rash Medical Decision Making Diagnostic Impression: Primary Impression: Fever Additional Impressions: Encephalopathy acute Pneumonia ER Course Patient presented for increased fever and cough. Differential diagnosis include was not limited to pneumonia, coronavirus infection, urinary tract infection among others. Because of complexity of patient's case laboratory tests and imaging studies were ordered. Patient was noted to have initial fever at his nursing facility. EKG interpreted by me showed normal sinus rhythm with a rate of [address] or T wave changes QTC was somewhat prolonged at 482. Coronavirus testing was sent. Chest x-ray 1 view read by radiology showed bilateral left greater than right ill-defined opacities that could represent consolidation and given the disparate history and could consider aspiration. Patient was given IV fluids as well as IV antibiotics for possible pneumonia.Dr. Levine was contacted for Dr. Green for inpatient management due to covering physician. Patient be admitted to due to pneumonia and possible aspiration. Labs Test 08/11/20 22:35 White Blood Count 9.4 K/UL (4.8-10.8) Red Blood Count 3.84 M/UL (4.70-6.10) Hemoglobin 11.1 G/DL (14.2-18.0) Hematocrit 33.6 % (42.0-52.0) Mean Corpuscular Volume 88 FL (80-99) Mean Corpuscular Hemoglobin 28.8 PG (27.0-31.0) Mean Corpuscular Hemoglobin Concent 32.9 G/DL (32.0-36.0) Red Cell Distribution Width 14.2 % (11.6-14.8) Platelet Count 177 K/UL (150-450) Mean Platelet Volume 7.6 FL (6.5-10.1) Neutrophils (%) (Auto) 82.3 % (45.0-75.0) Lymphocytes (%) (Auto) 7.2 % (20.0-45.0) Monocytes (%) (Auto) 8.9 % (1.0-10.0) Eosinophils (%) (Auto) 0.5 % (0.0-3.0) Basophils (%) (Auto) 1.1 % (0.0-2.0) EKG Diagnostic Results Troponin ordered: Yes Rate: normal - 80 Rhythm: NSR ST Segments: no acute changes Last Vital Signs Date Time Temp Pulse Resp B/P (MAP) Pulse Ox O2 Delivery O2 Flow Rate FiO2 08/11/20 22:26 101.3 86 18 112/68 (83) 96 Room Air Status: improved Disposition: ADMITTED INPATIENT Condition: Stable Agusto Cruz MD Aug 11, 2020 22:46
--- NOTE | 2020-08-11 23:05 | NUR ---
ED Nurse Note: blood collected and COVID/FLU swabs collected and sent to lab
[2020-08-11 23:23] LABS: BASOPHILS % (AUTO) 1.1 % (0.0-2.0); EOSINOPHILS % (AUTO) 0.5 % (0.0-3.0); HEMATOCRIT 33.6 % (42.0-52.0); HEMOGLOBIN 11.1 G/DL (14.2-18.0); LYMPHOCYTES % (AUTO) 7.2 % (20.0-45.0); MEAN CORPUSCULAR VOLUME 88 FL (80-99); MONOCYTES % (AUTO) 8.9 % (1.0-10.0); NEUTROPHILS % (AUTO) 82.3 % (45.0-75.0); PLATELET COUNT 177 K/UL (150-450); RED BLOOD COUNT 3.84 M/UL (4.70-6.10); RED CELL DISTRIBUTION WIDTH 14.2 % (11.6-14.8); WHITE BLOOD COUNT 9.4 K/UL (4.8-10.8)
--- NOTE | 2020-08-11 23:25 | Diagnostic Imaging Report ---
EXAM: XR Chest, 1 View CLINICAL HISTORY: SOB TECHNIQUE: Frontal view of the chest. COMPARISON: No relevant prior studies available. FINDINGS: Lungs: Bibasilar left greater than right ill defined opacity could represent consolidation, given distribution consider aspiration. Low lung volumes with bronchovascular crowding. Pleural space: Unremarkable. No pneumothorax. Heart: Unremarkable. No cardiomegaly. Mediastinum: Unremarkable. Bones/joints: No acute abnormality IMPRESSION: 1. Bibasilar left greater than right ill defined opacity could represent consolidation, given distribution consider aspiration. 2. Low lung volumes with bronchovascular crowding. 3. If there is continued concern, consider additional imaging.
--- NOTE | 2020-08-11 23:45 | NUR ---
ED Nurse Note: electrical mechanical technician at bedside
[2020-08-11 23:53] LABS: INR 2.2 (0.9-1.1)
--- NOTE | 2020-08-11 23:53 | NUR ---
ED Nurse Note: urinal placed comfortably on pt, pt instructed to urinate for urine sample.
[2020-08-12] VITALS (7 sets, daily range): BP systolic 115–147; BP diastolic 63–85
[2020-08-12 00:05] LABS: ALANINE AMINOTRANSFERASE 76 U/L (12-78); ALBUMIN 2.7 G/DL (3.4-5.0); ALBUMIN/GLOBULIN RATIO 0.7 (1.0-2.7); ALKALINE PHOSPHATASE 117 U/L (46-116); ASPARTATE AMINO TRANSFERASE 42 U/L (15-37); BILIRUBIN,TOTAL 1.7 MG/DL (0.2-1.0); BLOOD UREA NITROGEN 14 mg/dL (7-18); CALCIUM 8.1 MG/DL (8.5-10.1); CARBON DIOXIDE 24 MMOL/L (21-32); CKMB < 0.5 NG/ML (0.0-3.6); CREATINE KINASE 83 U/L (26-308); CREATININE 1.7 MG/DL (0.55-1.30)
[2020-08-12 00:07] LABS: BILIRUBIN,DIRECT 0.3 MG/DL (0.0-0.3)
[2020-08-12 00:13] LABS: CHLORIDE 105 MMOL/L (98-107); POTASSIUM 3.9 MMOL/L (3.5-5.1); SODIUM 138 MMOL/L (136-145)
--- NOTE | 2020-08-12 00:28 | NUR ---
ED Nurse Note: urine collected and sent to lab
[2020-08-12 00:52] LABS: APPEARANCE,URINE CLOUDY; BILIRUBIN, URINE NEGATIVE (NEGATIVE); GLUCOSE, URINE (UA) NEGATIVE (NEGATIVE); KETONES,URINE NEGATIVE (NEGATIVE); LEUKOCYTE ESTERASE ,URINE 3+ (NEGATIVE); NITRITE,URINE NEGATIVE (NEGATIVE); PH,URINE 5 (4.5-8.0); PROTEIN,URINE 2+ (NEGATIVE); UROBILINOGEN,URINE 1 MG/DL (0.0-1.0)
[2020-08-12 00:57] LABS: COLOR,URINE YELLOW
[2020-08-12] MEDS ORDERED: guaiFENesin /DM 10ml syrup ORAL PRN (01:15)
--- NOTE | 2020-08-12 01:47 | NUR ---
ED Nurse Note: Report given to NICOLÁS Holt
--- NOTE | 2020-08-12 01:50 | NUR ---
ED Nurse Note: pt transdered to Tele via jennarles accompanied by nursing staff development coordinator, pt in stable condition, admission packet and belongings taken with pt and handed to hydrate control tendernursing staff development coordinator.
--- NOTE | 2020-08-12 02:10 | NUR ---
NURSE NOTES: Important Events on Shift: Received report from LEIGH Perales RN. Pt admits to Tele asif Levine. Pt in stable condition, VS WNL, denies pain or distress at this time. Pt is covid-19 r/o, all necessary isolation precaution in place. Skin is intact, no signs or symptoms of skin breakdown noted. Pt cleaned, environmental monitoring specialist placed, fall and safety precautions in place. Will start plan of care and close monitoring. Patient Status: Stable Diet: CRZU soft easy chew Pending Orders: None Pending Results/Labs: none Pending MD notification: none Latest Vital Signs: Temperature 99.1 , Pulse 77 , B/P 123 /56 , Respiratory Rate 16 , O2 SAT 100 , Room Air, O2 Flow Rate . Vital Sign Comment: EKG Rhythm: Sinus Rhythm Rhythm change?: MD Notified?: - MD Response: none Latest Arriaga Fall Score: 60 Fall Risk: YES Safety Measures: Call light within reach, Bed Alarm zone 1 , Side Rails X 3 , Bed position locked and lowest position. yes Fall Precautions:YES
--- NOTE | 2020-08-12 07:45 | NUR ---
NURSE HAND-OFF REPORT: Important Events on Shift: Admitted to [facility] per [facility]. Pt had 6 beat of V tach @ 0430, asymptomatic, endorsed to next shift to report. Patient Status: stable Diet: CRUZ soft easy chew Pending Orders: none Pending Results/Labs: none Pending MD notification: V tach Latest Vital Signs: Temperature 99.1 , Pulse 72 , B/P 130 /69 , Respiratory Rate 18 , O2 SAT 100 , Room Air, O2 Flow Rate . Vital Sign Comment: EKG Rhythm: Sinus Rhythm Rhythm change?: N MD Notified?: - MD Response: Latest Arriaga Fall Score: 50 Fall Risk: High Risk Safety Measures: Call light Within Reach, Bed Alarm Zone 1, Side Rails Side Rails x3, Bed position Low and Locked. Fall Precautions: YES Yellow Socks YES Yellow Gown YES Door Sign YES Patient Fall Education YES Report given to Dez Scott RN
--- NOTE | 2020-08-12 07:46 | NUR ---
NURSE NOTES: Received hand-off report from Machelle Huff RN. Patient in stable condition, alert and oriented x3, responsive to verbal and tactile stimuli, in high-smith's position. Breathing even and unlabored, on room air, no s/s bleeding or distress. school bus monitor in place, bed in lowest and locked position, bed alarm on. Contact and droplet precaution signs up and followed.
--- NOTE | 2020-08-12 07:48 | NUR ---
NURSE NOTES: Notified Dr. Green regarding 6-beats of v-tach. Awaiting response.
[2020-08-12] MEDS: Carvedilol 6.25mg Tab ORAL SCH ×2 (08:44→21:58)
[2020-08-12] MEDS: Cefepime 2gm in D5W 55ml IVPB SCH (08:45)
[2020-08-12] MEDS ORDERED: Cefepime HCl 1 GM in D5W 55 ML IVPB SCH (09:00)
[2020-08-12] MEDS ORDERED: Cefepime 2gm in D5W 55ml IVPB SCH (09:00)
[2020-08-12] MEDS ORDERED: DOXAZOSIN MESYLA1 MG ORAL (10:04)
[2020-08-12] MEDS ORDERED: OMEPRAZOLE20 M2 ORAL (10:04)
[2020-08-12] MEDS ORDERED: WARFARIN SODIUM10 MG ORAL (10:04)
[2020-08-12] MEDS ORDERED: CARVEDILOL6.25 MG ORAL (10:04)
[2020-08-12] MEDS ORDERED: BENAZEPRIL HCL40 MG ORAL (10:04)
[2020-08-12] MEDS ORDERED: ATORVASTATIN CA20 MG ORAL (10:04)
[2020-08-12] MEDS ORDERED: PERIGUARD OINT100 GM TP (11:42)
[2020-08-12] MEDS ORDERED: SODIUM CHLORIDE PO (12:48)
--- NOTE | 2020-08-12 13:00 | NUR ---
NURSE NOTES: Notified Dr. Levine regarding 6 beats of v-tach earlier this morning. No new orders at this time.
[2020-08-12] MEDS ORDERED: Vancomycin 1.5gm/300ml Premix IVPB SCH (15:00)
--- NOTE | 2020-08-12 15:29 | History and Physical Report ---
DATE OF ADMISSION: 08/11/2020 CHIEF COMPLAINT: Sepsis. HISTORY OF PRESENT ILLNESS: The patient is a pleasant male, well known to me. He has a prior history of LV thrombus and stroke with left-sided weakness. [facility] from a [facility] facility with persistent fevers as high as 106. The patient is a poor historian. He denies any cough, diarrhea, or dysuria. On evaluation in the emergency room, the patient was febrile to 101.3. Chest x-ray showed bibasilar, left greater than right, ill-defined opacity. UA showed too numerous to count wbc's. The patient has been pancultured. He is now admitted for further evaluation and care. His COVID PCR is currently pending. PAST MEDICAL HISTORY: As above with history of hypertension, chronic kidney disease, history of dementia, and LV thrombus. PAST SURGICAL HISTORY: None. CURRENT MEDICATIONS: Reconciled and reviewed. ALLERGIES: None. FAMILY HISTORY: None. SOCIAL HISTORY: There is no known history of tobacco, ethanol, or drugs. REVIEW OF SYSTEMS: CONSTITUTIONAL: Positive fevers. No chills. HEENT: No headaches or visual changes. No ear pain. CARDIOPULMONARY: No chest pain or shortness of breath. GASTROINTESTINAL: No nausea or vomiting. GENITOURINARY: No urgency or frequency. MUSCULOSKELETAL: No joint pains or swelling. NEUROLOGIC: No history of seizures. Positive history of stroke with hemiparesis. PHYSICAL EXAMINATION: VITAL SIGNS: Temperature T-max 101.3, pulse 86, respirations 18, and blood pressure 112/76. GENERAL: The patient is a well-developed male, in no apparent distress. He is awake, alert, and answers simple questions appropriately. HEENT: His pupils are equal, round, and reactive to light. Sclerae anicteric. Oropharynx is clear. NECK: Supple. There is no adenopathy. HEART: Regular rate and rhythm. LUNGS: Clear. ABDOMEN: Soft, nontender, nondistended. EXTREMITIES: Without clubbing, cyanosis, or edema. LABORATORY DATA: Labs showed UA with too numerous to count wbc's. White count was 9. Sodium was 138. Creatinine was 1.7. ASSESSMENT: This is a 75-year-old male with history of dementia, stroke, LV thrombus, paroxysmal AFib, hypertension, and chronic kidney disease with complaints of fever secondary to sepsis from UTI. PLAN: IV antibiotics. Follow up cultures. Cardiology and ID consultations will be obtained. We will follow up COVID PCR. Continue respiratory isolation until PCR is back. Continue Coumadin treatment. Tylenol for fever. Continue stress ulcer prophylaxis. Alejo Ramin Green DR: Sasha JOB#: [id number] CC:
[2020-08-12] MEDS: Warfarin Sodium 1mg ORAL SCH (18:40)
--- NOTE | 2020-08-12 19:30 | NUR ---
NURSE HAND-OFF REPORT: Important Events on Shift: Patient Status: stable condition, full code Diet: NSA soft easy chew Pending Orders: [] Pending Results/Labs:[] Pending MD notification:[] Latest Vital Signs: Temperature 97.9 , Pulse 78 , B/P 143 /78 , Respiratory Rate 20 , O2 SAT 98 , Room Air, O2 Flow Rate . Vital Sign Comment: [] EKG Rhythm: Sinus Rhythm Rhythm change?: N MD Notified?: - MD Response: Latest Arriaga Fall Score: 50 Fall Risk: High Risk Safety Measures: Call light Within Reach, Bed Alarm Zone 2, Side Rails Side Rails x2, Bed position Low and Locked. Fall Precautions: Yellow Socks Yellow Gown Patient Fall Education Report given to Frieda Mata RN.
--- NOTE | 2020-08-12 19:35 | NUR ---
NURSE NOTES: Received pt and report from NICOLÁS Garces. Observed pt resting in bed with both eyes open. Pt is A/Ox2-3. cafeteria monitor is in placed; pt is NSR. IV site intact, asymptomatic, and patent; running NS @75cc/hr. Bed is in the lowest position and locked. Call light and bedside table is within reach. No signs/symptoms of acute distress noted. Will continue plan of care.
[2020-08-12] MEDS: Atorvastatin 20mg tab ORAL SCH (21:57)
[2020-08-12] MEDS ORDERED: Vancomycin 1gm in D5W 275ml IVPB SCH (22:00)
--- NOTE | 2020-08-12 22:35 | NUR ---
NURSE NOTES: Notified Dr. Green that pt has a fever of 101.7F; Dr. Green ordered Tylenol 650mg PO for fever >100.5. Noted and carried out.
[2020-08-13] VITALS: BP 127/67
--- NOTE | 2020-08-13 03:31 | Cardiology Progress Note ---
Subjective DATE OF SERVICE: Aug 12, 2020 Fever spike last nite to 101.3 Still with cough. Covid 19 PCR is pending Objective Last 24 Hour Vital Signs Date Time Temp Pulse Resp B/P (MAP) Pulse Ox O2 Delivery O2 Flow Rate FiO2 08/13/20 00:00 84 08/13/20 00:00 97.6 85 19 127/67 (87) 99 08/12/20 23:03 97.5 08/12/20 21:58 101 151/79 08/12/20 21:00 Room Air 08/12/20 20:00 99.9 101 20 147/85 (105) 96 08/12/20 16:00 97.9 82 20 143/78 (99) 98 08/12/20 16:00 78 08/12/20 12:00 78 08/12/20 12:00 98.1 65 20 132/80 (97) 98 08/12/20 09:00 Room Air 08/12/20 08:44 68 134/72 08/12/20 08:44 134/72 08/12/20 08:00 69 08/12/20 08:00 98.1 68 20 134/72 (92) 99 08/12/20 05:18 Room Air 08/12/20 04:38 99.1 08/12/20 04:00 97.9 72 18 130/69 (89) 100 ROS: unchanged from my evaluataion of 08/11/20 HEENT: normal ENT inspection RHYTHM: NSR, PVCs, PACs LUNGS: bilateral rhonchi CARDIAC: normal rate, regular rhythm, normal S1 and S2, systolic murmur - 1/6 apex ABDOMEN: normal bowel sounds, non tender, soft, no organomegaly EXTREMITIES: normal range of motion, no calf tenderness, No edema Laboratory Tests Test 08/12/20 12:00 Random Vancomycin Level 5.5 ug/mL Microbiology Date/Time Source Procedure Growth Status 08/11/20 22:35 Nasal Nares - Final Complete 08/11/20 22:35 Nasal Nares - Final Complete 08/11/20 22:35 Blood Blood Culture - Preliminary NO GROWTH AFTER 24 HOURS Resulted 08/11/20 22:20 Blood Blood Culture - Preliminary NO GROWTH AFTER 24 HOURS Resulted Assessment/Plan Assessment/Plan Healthcare assoc PNA Possible Covid infection HHD Ischemic cmpy Chronic systolic/diastolic CHF LV thrombus on chronic anticoagulation CVA with dementia Abx Resp rx Await covid 19 swab Continue full anticoagulation Titrate anti-failure and anti-HTN regimen; trend BNP John Levine MD Aug 13, 2020 03:31
[2020-08-13 04:00] VITALS: BP 157/85
--- NOTE | 2020-08-13 04:30 | Consultation ---
DATE OF CONSULTATION: 08/11/2020 CARDIOLOGY CONSULTATION CONSULTING PHYSICIAN: John Levine MD REQUESTING PHYSICIAN: Alejo Green MD REASON FOR CONSULTATION: Sepsis in the setting of ischemic cardiomyopathy. HISTORY OF PRESENT ILLNESS: This is a 75-year-old male with history of ischemic heart disease, left ventricular thrombus, paroxysmal atrial fibrillation, and history of cardiogenic stroke with resultant left hemiparesis. He is on chronic anticoagulation. He developed high fevers at the [facility] where [facility]. Reports were fevers up to 106. The patient has not had any constitutional symptoms. He was referred to the emergency room. He was noted to have an abnormal chest radiograph and then urinalysis with too numerous to count white cells. I have been asked to assist with cardiovascular care. PAST MEDICAL HISTORY: Hypertension, coronary artery disease, paroxysmal atrial fibrillation, cerebrovascular disease, left hemiparesis, dementia, and history of left ventricular thrombus. ALLERGIES: None. MEDICATIONS: Reviewed and reconciled. FAMILY HISTORY: Notable for hypertension in his sister. SOCIAL HISTORY: Negative for smoking, alcohol, or substance abuse. REVIEW OF SYSTEMS: A 10-point review of systems performed. All systems negative other than noted above. PHYSICAL EXAMINATION: VITAL SIGNS: T-max 101.3, blood pressure 112/76, heart rate 86, respiratory rate 18. HEENT: Temporal wasting. Arcus senilis. Oropharynx clear. NECK: Supple. LUNGS: With few rhonchi. CARDIAC: Regular rhythm and rate. Normal S1, S2 with a 1/6 systolic murmur at the apex. ABDOMEN: Soft, nontender. EXTREMITIES: Good pulses. No edema. NEUROLOGIC: With left hemiparesis and mild cognitive impairment. LABORATORY AND DIAGNOSTIC DATA: Chest x-ray reveals bibasilar opacities. EKG reveals sinus rhythm, occasional PVC, nonspecific ST changes. COVID-19 PCR pending. IMPRESSION: Sepsis, healthcare-associated pneumonia, possible COVID-19 pneumonia, urinary tract infection, ischemic cardiomyopathy, history of left ventricular thrombus, CVA with left hemiparesis, paroxysmal atrial fibrillation, nonsustained ventricular ectopy, and chronic kidney disease. PLAN: Antimicrobials. Follow up COVID swab. Isolation in the interim. Maintain full anticoagulation to INR of 2 to 2.5. Titrate anti-failure and antihypertensives based on clinical parameters. We will follow with you during this hospital course. John Levine M.D. DR: Vanessa JOB#: [id number] CC:
--- NOTE | 2020-08-13 07:16 | NUR ---
NURSE NOTES: Received hand-off report from NICOLÁS Molina. Patient is A/O x3 and responsive to verbal and tactile stimuli, in high-smith's position. Breathing even and unlabored, on room air, no s/s bleeding or distress. vehicle monitor technician in place, bed in lowest and locked position, bed alarm on. Contact and droplet precaution signs up and followed.
--- NOTE | 2020-08-13 07:41 | NUR ---
NURSE HAND-OFF REPORT: Important Events on Shift: Pt had a fever over night. Tylenol PO given and temp decreased. View nurses nurse and eMAR for details. Patient Status: Stable Diet: No salt added; soft easy chew Pending Orders: 2D echo Pending Results/Labs: AM Labs Pending MD notification: N Latest Vital Signs: Temperature 98.6 , Pulse 81 , B/P 157 /85 , Respiratory Rate 19 , O2 SAT 100 , Room Air, O2 Flow Rate . EKG Rhythm: SR w/BBB Rhythm change?: Alisa ORTIZ Notified?: Alisa -Dr. Abner ORTIZ Response: Message left await call Latest Arriaga Fall Score: 50 Fall Risk: High Risk Safety Measures: Call light Within Reach, Bed Alarm Zone 2, Side Rails Side Rails x2, Bed position Low and Locked. Fall Precautions: Yellow Socks Yellow Gown Door Sign Patient Fall Education Report given to NICOLÁS Orellana.
[2020-08-13 08:00] VITALS: BP 153/80
--- NOTE | 2020-08-13 09:30 | General Progress Note ---
Subjective ROS Limited/Unobtainable: No Constitutional: Reports: malaise, weakness HEENT: Reports: no symptoms Cardiovascular: Reports: no symptoms Respiratory: Reports: no symptoms Gastrointestinal/Abdominal: Reports: no symptoms Genitourinary: Reports: no symptoms Neurologic/Psychiatric: Reports: pre-existing deficit Endocrine: Reports: no symptoms Hematologic/Lymphatic: Reports: no symptoms Allergies: Coded Allergies: No Known Allergies (Unverified , 05/27/14) All Systems: reviewed and negative except above Subjective no complaints. on iv abx. no fevers or chills. Ucx with gnr. no new complaints. cards noted./ Objective Last 24 Hour Vital Signs Date Time Temp Pulse Resp B/P (MAP) Pulse Ox O2 Delivery O2 Flow Rate FiO2 08/13/20 08:00 97.9 80 20 153/80 (104) 100 08/13/20 04:00 98.6 79 19 157/85 (109) 100 08/13/20 04:00 81 08/13/20 00:00 84 08/13/20 00:00 97.6 85 19 127/67 (87) 99 08/12/20 23:03 97.5 08/12/20 21:58 101 151/79 08/12/20 21:00 Room Air 08/12/20 20:00 99.9 101 20 147/85 (105) 96 08/12/20 16:00 97.9 82 20 143/78 (99) 98 08/12/20 16:00 78 08/12/20 12:00 78 08/12/20 12:00 98.1 65 20 132/80 (97) 98 Intake and Output 08/12/20 08/13/20 18:59 06:59 Intake Total 480 ml 825 ml Output Total 300 ml 600 ml Balance 180 ml 225 ml Intake Oral 480 ml IV Total 825 ml Output Urine Total 300 ml 600 ml # Voids 1 Laboratory Tests 08/12/20 12:00: Random Vancomycin Level 5.5 Height (Feet): 5 Height (Inches): 8.00 Weight (Pounds): 154 General Appearance: WD/WN, alert, thin EENT: normal ENT inspection Neck: non-tender, normal alignment, supple Cardiovascular: normal peripheral pulses, normal rate, regular rhythm Respiratory/Chest: chest wall non-tender, lungs clear, normal breath sounds, no respiratory distress, no accessory muscle use Abdomen: normal bowel sounds, non tender, soft, no organomegaly, no mass Edema: no edema noted Arm (L), no edema noted Arm (R), no edema noted Leg (L), no edema noted Leg (R) Neurologic: harbour master II-XII grossly normal, motor weakness Assessment/Plan Problem List: (1) UTI (urinary tract infection) ICD Codes: N39.0 - Urinary tract infection, site not specified SNOMED: 75396032 (2) Stroke ICD Codes: I63.9 - Cerebral infarction, unspecified SNOMED: 860529838 (3) Fever ICD Codes: R50.9 - Fever, unspecified SNOMED: 630133533 (4) Encephalopathy acute ICD Codes: G93.40 - Encephalopathy acute SNOMED: 5482094 (5) Pneumonia ICD Codes: J18.9 - Pneumonia, unspecified organism SNOMED: 775079223 Status: stable, progressing Assessment/Plan: iv abx follow up cultures ID eval pending coumadin rx tylenol for fever \pt/ot Alejo Green MD Aug 13, 2020 09:30
[2020-08-13] MEDS: Cefepime 2gm in D5W 55ml IVPB SCH (09:33)
[2020-08-13] MEDS: Carvedilol 6.25mg Tab ORAL SCH ×2 (09:34→21:50)
[2020-08-13 11:15] LABS: INR 1.8 (0.9-1.1)
[2020-08-13 11:54] LABS: ANION GAP 9 mmol/L (5-15); BLOOD UREA NITROGEN 17 mg/dL (7-18); CARBON DIOXIDE 25 MMOL/L (21-32); CHLORIDE 100 MMOL/L (98-107); CREATININE 1.3 MG/DL (0.55-1.30); POTASSIUM 4.1 MMOL/L (3.5-5.1); SODIUM 134 MMOL/L (136-145)
[2020-08-13 12:00] VITALS: BP 151/83
[2020-08-13] MEDS ORDERED: Vancomycin 1.25gm/250ml Premix IVPB SCH (14:00)
[2020-08-13 16:00] VITALS: BP 144/79
--- NOTE | 2020-08-13 17:00 | Consultation ---
DATE OF CONSULTATION: 08/13/2020 INFECTIOUS DISEASE CONSULT REFERRING PHYSICIAN: Alejo Green M.D. REASON FOR CONSULTATION: Urinary tract infection. HISTORY OF PRESENTING ILLNESS: This is a 75-year-old gentleman with history of LV thrombus, stroke with weakness, hypertension, chronic kidney disease, dementia, who comes in from a group home facility with fevers. He was found to have a urinary tract infection. There is also pneumonia. COVID-19 test is pending and an infectious diseases consultation has been obtained for antibiotics. PAST MEDICAL HISTORY: 1. History of hypertension. 2. Dementia. 3. Stroke. 4. LV thrombus. SOCIAL HISTORY: No history of smoking, alcohol, or drug use. FAMILY HISTORY: Noncontributory. REVIEW OF SYSTEMS: RESPIRATORY: No fever, chills, cough, shortness of breath, or chest pain. CARDIAC: No chest pain. No palpitation. No dizziness. No syncope. GASTROINTESTINAL: No nausea. No vomiting. No abdominal pain or diarrhea. MEDICATIONS: As an inpatient, he is on Tylenol, atorvastatin, warfarin, cefepime, Coreg, Protonix, benazepril, Robitussin, Tylenol, IV vancomycin. ALLERGIES: No known drug allergies. PHYSICAL EXAMINATION: VITAL SIGNS: Temperature of 97.9, T-max of 99.9, pulse of 80, respiratory rate 20, blood pressure 153/80, O2 saturation of 100% on room air. Examination deferred due to possibility of COVID-19. LABORATORY DATA: White count 9.4, hemoglobin 11.1, hematocrit 33.6, MCV 88, platelet count of 177, neutrophils of 82%. Sodium 138, potassium 3.9, chloride 105, bicarb 24, BUN 14, creatinine 1.7, glucose 135, calcium 8.1. Total bilirubin 1.7, direct bilirubin 0.3, AST 42, ALT 76, alkaline phosphatase 117. CK of 83, CK-MB less than 0.5. Troponin 0.025. Total protein 6.7, albumin 2.7. UA showing tow-dtyvbohg-kn-count white cells. Urine culture showing gram-negative rods. Nasal swab was negative for influenza A and B. Blood cultures are negative. Chest x-ray showing bibasilar kgsr-[id number]-hzen-right consolidation, possible aspiration noted. ASSESSMENT: This is a 75-year-old gentleman with history of hypertension, chronic kidney disease, dementia, stroke, LV thrombus, who comes in with shortness of breath and fevers and is found to have: 1. Gram-negative urinary tract infection. 2. Pneumonia. 3. CVA. 4. Hypertension. PLAN: 1. Continue cefepime. 2. COVID-19 test is pending. 3. We will follow up cultures. I would like to thank Dr. Green for this consultation. Homero Woodard M.D. DR: SANDRA JOB#: [id number] CC: Alejo Green M.D.
[2020-08-13] MEDS: Warfarin Sodium 1mg ORAL SCH (17:13)
--- NOTE | 2020-08-13 19:36 | NUR ---
NURSE HAND-OFF REPORT: Important Events on Shift: No temp during the shift. Vancomycin started. Patient Status: Stable Diet: CRUZ Soft Easy Chew Pending Orders: Pending Results/Labs: Pending MD notification: Latest Vital Signs: Temperature 99.1 , Pulse 92 , B/P 144 /79 , Respiratory Rate 20 , O2 SAT 100 , Room Air, O2 Flow Rate . Vital Sign Comment: EKG Rhythm: SR w/BBB Rhythm change?: N MD Notified?: Alisa Levine MD Response: Message left await call Latest Arriaga Fall Score: 50 Fall Risk: High Risk Safety Measures: Call light Within Reach, Bed Alarm Zone 2, Side Rails Side Rails x2, Bed position Low and Locked. Fall Precautions: Yellow Socks Yellow Gown Door Sign Patient Fall Education Report given to
--- NOTE | 2020-08-13 19:40 | NUR ---
NURSE NOTES: Received hand-off report from Reyna MONZON. Patient is A/O x3 and responsive to verbal and tactile stimuli, in high-smith's position. Breathing is even and unlabored, on room air, in no acute distress. patient monitor in place, bed in lowest and locked position, bed alarm on. Contact and droplet precautions in place as pt is a PUI.
--- NOTE | 2020-08-13 19:45 | NUR ---
NURSE NOTES: Noticed pt IV on right forearm is extremely edematous, pink, tender to touch and warm. I discontinued infiltrated IV , will reinsert IV to continue fluids. Elevated right arm on pillow to help reduce swelling. pt repositioned and turned, is clean and dry at present
[2020-08-13 20:00] VITALS: BP 148/89
[2020-08-13] MEDS ORDERED: Warfarin Sodium 1mg ORAL ONE (20:00)
--- NOTE | 2020-08-13 20:00 | NUR ---
NURSE NOTES: Sputum for culture sputum gram stain collected and brought to lab
--- NOTE | 2020-08-13 20:39 | Cardiology Report ---
APPROVED REPORT EKG Measurement Heart [id number] <Conclusion> Normal sinus rhythm Left axis deviation Inferior infarct, age undetermined Anterolateral infarct, age undetermined Abnormal ECG
[2020-08-13] MEDS: Atorvastatin 20mg tab ORAL SCH (21:50)
[2020-08-14] VITALS: BP 115/66
--- NOTE | 2020-08-14 00:20 | Cardiology Progress Note ---
Subjective DATE OF SERVICE: Aug 13, 2020 Still with fever spikes above 102 Still with cough. Covid 19 PCR is pending Objective Last 24 Hour Vital Signs Date Time Temp Pulse Resp B/P (MAP) Pulse Ox O2 Delivery O2 Flow Rate FiO2 08/13/20 22:37 101.3 08/13/20 21:50 104 148/89 08/13/20 20:00 102.2 104 22 148/89 (108) 94 08/13/20 19:49 104 08/13/20 16:00 99.1 89 20 144/79 (100) 100 08/13/20 16:00 92 08/13/20 12:00 98.1 84 20 151/83 (105) 99 08/13/20 12:00 77 08/13/20 09:34 80 153/80 08/13/20 09:34 153/80 08/13/20 09:00 Room Air 08/13/20 08:00 97.9 80 20 153/80 (104) 100 08/13/20 08:00 71 08/13/20 04:00 98.6 79 19 157/85 (109) 100 08/13/20 04:00 81 ROS: unchanged from my evaluataion of 08/11/20 HEENT: normal ENT inspection RHYTHM: NSR, PVCs, PACs LUNGS: bilateral rhonchi CARDIAC: normal rate, regular rhythm, normal S1 and S2, systolic murmur - 1/6 apex ABDOMEN: normal bowel sounds, non tender, soft, no organomegaly EXTREMITIES: normal range of motion, no calf tenderness, No edema Laboratory Tests Test 08/13/20 10:15 08/13/20 11:05 Prothrombin Time 19.4 SEC (9.30-11.50) H Prothromb Time International Ratio 1.8 (0.9-1.1) H Sodium Level 134 MMOL/L (136-145) L Potassium Level 4.1 MMOL/L (3.5-5.1) Chloride Level 100 MMOL/L (98-107) Carbon Dioxide Level 25 MMOL/L (21-32) Anion Gap 9 mmol/L (5-15) Blood Urea Nitrogen 17 mg/dL (7-18) Creatinine 1.3 MG/DL (0.55-1.30) Estimat Glomerular Filtration Rate > 60 mL/min (>60) Glucose Level 97 MG/DL (74-106) Calcium Level 8.0 MG/DL (8.5-10.1) L Random Vancomycin Level 4.4 ug/mL Microbiology Date/Time Source Procedure Growth Status 08/12/20 00:10 Urine,Clean Catch Urine Culture - Preliminary Gram Negative Dave Resulted 08/11/20 22:35 Nasal Nares - Final Complete 08/11/20 22:35 Nasal Nares - Final Complete 08/11/20 22:35 Blood Blood Culture - Preliminary NO GROWTH AFTER 24 HOURS Resulted 08/11/20 22:20 Blood Blood Culture - Preliminary NO GROWTH AFTER 24 HOURS Resulted Assessment/Plan Assessment/Plan Healthcare assoc PNA UTI Possible Covid infection HHD Ischemic cmpy Chronic systolic/diastolic CHF LV thrombus on chronic anticoagulation CVA with dementia Abx Resp rx Await covid 19 swab Continue full anticoagulation Titrate anti-failure and anti-HTN regimen; carvedilol dose advanced. John Levine MD Aug 14, 2020 00:20
[2020-08-14 04:04] VITALS: BP 111/76
--- NOTE | 2020-08-14 07:58 | NUR ---
NURSE NOTES: Received report from NICOLÁS Hahn. Pt is stable and sleeping in bed. Pt has no complaints or s/s of distress at this time. Pt on RA, unlabored and even breathing. Pt skin intact. L Hand 24g NS at 75 running, asymptomatic and intact. Pt bed low and locked, call light inreach and bed alarm on. Pt verbalized understanding to call for help.
[2020-08-14 08:00] VITALS: BP 137/79
--- NOTE | 2020-08-14 08:01 | NUR ---
NURSE HAND-OFF REPORT: Important Events on Shift: temp up to 102.2, afebrile at this time, tylenol given x1 dose Patient Status: Stable except temp last night, pt wants to wear 5-10 blankets and complains of feeling cold, Urine has e coli, mixed gram + organisms, pending ID and sensitivity Diet: CRUZ Soft Easy Chew Pending Orders: Pending Results/Labs: Pending MD notification: Latest Vital Signs: Temperature 99.1 , Pulse 92 , B/P 144 /79 , Respiratory Rate 20 , O2 SAT 100 , Room Air, O2 Flow Rate . Vital Sign Comment: EKG Rhythm: SR w/BBB Latest Arriaga Fall Score: 50 Fall Risk: High Risk Safety Measures: Call light Within Reach, Bed Alarm Zone 2, Side Rails Side Rails x2, Bed position Low and Locked. Fall Precautions: Yellow Socks Yellow Gown Door Sign Patient Fall Education Report given to Opal MONZON Addendum: 08/14/20 at 0803 by Nayeli Diaz RN PT lab drawn
[2020-08-14] MEDS: Cefepime 2gm in D5W 55ml IVPB SCH (08:30)
[2020-08-14] MEDS: Carvedilol 12.5mg tab ORAL SCH ×2 (08:31→21:58)
--- NOTE | 2020-08-14 10:25 | Cardiology Report ---
APPROVED REPORT EXAM: Two-dimensional and M-mode echocardiogram with Doppler and color Doppler. INDICATION Angina pectoris M-Mode DIMENSIONS IVSd0.9 (0.7-1.1cm)Left Atrium (MM)3.5 (1.6-4.0cm) LVDd5.6 (3.5-5.6cm)Aortic Root3.4 (2.0-3.7cm) PWd0.9 (0.7-1.1cm)Aortic Cusp Exc.1.8 (1.5-2.0cm) IVSs1.3 cmEPSS0.9 (>1.0cm) LVDs4.0 (2.5-4.0cm) PWs1.3 cm <Conclusion> Technically difficult study due to pt's arm contracted. Normal left ventricular chamber size. Mid to distal segments hypokinetic,apex dyskinetic with apical-lateral thrombus. Left ventricular ejection fraction estimated to be 35-40 %. No evidence of left ventricular hypertrophy. Anterior Echo-free space, may be due to pericardial fat. All other cardiac chamber sizes are within normal limits. Focal aortic valve sclerosis with adequate cusp excursion. Thickened mitral valve leaflets with normal excursion. Mitral annulus and aortic root calcification. Pulmonic valve not well visualized. Normal tricuspid valve structure. Subcostal views are not obtainable due to pt's arm contracted. A color flow and spectral Doppler study was performed and revealed: Mild aortic regurgitation. Mild to moderate mitral regurgitation. Mitral inflow velocities indicates possible pseudo normalization pattern implying moderately elevated left atrial pressure (Grade II ). Trace tricuspid regurgitation. Tricuspid systolic velocities suggests peak right ventricular systolic pressure of 30 mmHg.
[2020-08-14 10:57] LABS: INR 2.2 (0.9-1.1)
[2020-08-14 12:00] VITALS: BP 125/72
--- NOTE | 2020-08-14 12:01 | Infectious Diseases Prog Note ---
Assessment/Plan Assessment/Plan antibiotics : vancomycin iv, cefepime A 1. e.coli urinary tract infection. 2. Pneumonia. COVID 19 test negative 3. CVA. 4. Hypertension. PLAN: 1. d/c iv vancomycin, cefepime. 2. start and continue ceftriaxone 3 more days 3. We will follow up cultures Subjective Constitutional: Denies: fever, chills Respiratory: Denies: shortness of breath, dry cough Gastrointestinal/Abdominal: Denies: nausea, vomiting, diarrhea Musculoskeletal: Denies: pain Allergies: Coded Allergies: No Known Allergies (Unverified , 05/27/14) Objective Last 24 Hour Vital Signs Date Time Temp Pulse Resp B/P (MAP) Pulse Ox O2 Delivery O2 Flow Rate FiO2 08/14/20 09:00 Room Air 08/14/20 08:31 77 137/79 08/14/20 08:30 137/79 08/14/20 08:00 98.9 77 20 137/79 (98) 97 08/14/20 08:00 81 08/14/20 04:04 97.5 78 20 111/76 (88) 98 08/14/20 03:45 67 08/14/20 00:12 93 08/14/20 00:00 97.7 87 20 115/66 (82) 97 08/13/20 22:37 101.3 08/13/20 21:50 104 148/89 08/13/20 21:00 Room Air 08/13/20 21:00 101.3 08/13/20 20:00 102.2 104 22 148/89 (108) 94 08/13/20 19:49 104 08/13/20 16:00 99.1 89 20 144/79 (100) 100 08/13/20 16:00 92 08/13/20 12:00 98.1 84 20 151/83 (105) 99 08/13/20 12:00 77 Height (Feet): 5 Height (Inches): 8.00 Weight (Pounds): 154 Respiratory/Chest: lungs clear Cardiovascular: normal rate, regular rhythm, no gallop/murmur Abdomen: soft, non tender Extremities: no edema Microbiology Date/Time Source Procedure Growth Status 08/12/20 00:30 Rectum VRE Culture - Final NO VANCOMYCIN RESISTANT ENTEROCOCCUS ... Complete 08/12/20 00:30 Nasal Nares MRSA Culture - Final NO METHICILLIN RESISTANT STAPH AUREUS... Complete 08/12/20 00:10 Urine,Clean Catch Urine Culture - Final Escherichia Coli Mixed Gram Positive Organism Complete 08/11/20 22:35 Nasal Nares - Final Complete 08/11/20 22:35 Nasal Nares - Final Complete 08/11/20 22:35 Nasopharynx Coronavirus COVID-19 PCR (KRISTI) - Final Complete 08/11/20 22:35 Blood Blood Culture - Preliminary NO GROWTH AFTER 48 HOURS Resulted 08/11/20 22:20 Blood Blood Culture - Preliminary NO GROWTH AFTER 48 HOURS Resulted Laboratory Tests Test 08/14/20 10:10 Prothrombin Time 22.6 SEC (9.30-11.50) H Prothromb Time International Ratio 2.2 (0.9-1.1) H Current Medications Medications (Trade) Dose Ordered Sig/Leo Route PRN Reason Start Time Stop Time Status Last Admin Dose Admin Acetaminophen (Tylenol) 650 mg Q4H PRN ORAL Mild Pain (Pain Scale 1-3) 08/12/20 01:15 09/11/20 01:14 08/12/20 22:33 Acetaminophen (Tylenol) 650 mg Q4H PRN ORAL FEVER >100.5 08/12/20 22:15 09/11/20 22:14 08/13/20 22:07 Atorvastatin Calcium (Lipitor) 20 mg BEDTIME ORAL 08/12/20 21:00 11/10/20 20:59 08/13/20 21:50 Benazepril HCl (Lotensin) 40 mg DAILY ORAL 08/12/20 09:00 09/11/20 08:59 08/14/20 08:30 Carvedilol (Coreg) 12.5 mg EVERY 12 HOURS ORAL 08/14/20 09:00 09/13/20 08:59 08/14/20 08:31 Cefepime HCl 2 gm/ Dextrose 55 ml @ 110 mls/hr Q24H IVPB 08/12/20 09:00 08/19/20 08:59 08/14/20 08:30 Guaifenesin/ Dextromethorphan (Robitussin DM Syrup) 10 ml Q4H PRN ORAL For Cough 08/12/20 01:15 11/10/20 01:14 Pantoprazole (Protonix) 40 mg DAILY ORAL 08/12/20 09:00 09/11/20 08:59 08/14/20 08:35 Sodium Chloride 1,000 ml @ 75 mls/hr [id number] IV 08/12/20 02:00 09/11/20 01:59 08/14/20 08:30 Vancomycin HCl 250 ml @ 166.667 mls/hr Q24H IVPB 08/13/20 14:00 08/18/20 13:59 08/13/20 13:58 Vancomycin HCl (Vanco pharmacy to dose) 1 ea DAILY PRN MISC Per rx protocol 08/12/20 01:15 09/11/20 01:14 Warfarin Sodium (Warfarin Sod) 3 mg DAILY@17 ORAL 08/12/20 17:00 08/17/20 16:59 08/13/20 17:13 Homero Woodard MD Aug 14, 2020 12:01
[2020-08-14] MEDS: cefTRIAXone 1 GM in D5W 55 ML IVPB SCH (13:31)
--- NOTE | 2020-08-14 14:47 | NUR ---
CASE MANAGEMENT:REVIEW 08/14/20 SI: PNA. UTI H/O LV THROMBUS 99.0 78 18 125/72 96% ON RA IS: IV ROCEPHIN Q24 IVF@75/HR COREG PO Q12 WARFARIN PO QD LOTENSIN PO QD : TELEMETRY STATUS DCP: NIMCO LAMBERT
[2020-08-14 16:00] VITALS: BP 154/82
--- NOTE | 2020-08-14 16:42 | General Progress Note ---
Subjective ROS Limited/Unobtainable: No Constitutional: Reports: malaise, weakness Allergies: Coded Allergies: No Known Allergies (Unverified , 05/27/14) Subjective no complaints. on iv abx. no fevers or chills. Ucx reviewed. ID and cards noted. no new complaints. covid pcr neg Objective Last 24 Hour Vital Signs Date Time Temp Pulse Resp B/P (MAP) Pulse Ox O2 Delivery O2 Flow Rate FiO2 08/14/20 16:00 96.6 76 20 154/82 (106) 96 08/14/20 12:00 78 08/14/20 12:00 99.0 75 18 125/72 (89) 96 08/14/20 09:00 Room Air 08/14/20 08:31 77 137/79 08/14/20 08:30 137/79 08/14/20 08:00 98.9 77 20 137/79 (98) 97 08/14/20 08:00 81 08/14/20 04:04 97.5 78 20 111/76 (88) 98 08/14/20 03:45 67 08/14/20 00:12 93 08/14/20 00:00 97.7 87 20 115/66 (82) 97 08/13/20 22:37 101.3 08/13/20 21:50 104 148/89 08/13/20 21:00 Room Air 08/13/20 21:00 101.3 08/13/20 20:00 102.2 104 22 148/89 (108) 94 08/13/20 19:49 104 Intake and Output 08/13/20 08/14/20 19:00 07:00 Intake Total 855 ml 750 ml Balance 855 ml 750 ml Intake Oral 780 ml IV Total 75 ml 750 ml # Voids 4 3 # Bowel Movements 1 2 Laboratory Tests 08/14/20 10:10: Prothrombin Time 22.6H, Prothromb Time International Ratio 2.2H Height (Feet): 5 Height (Inches): 8.00 Weight (Pounds): 154 Objective General Appearance: WD/WN, alert, thin EENT: normal ENT inspection Neck: non-tender, normal alignment, supple Cardiovascular: normal peripheral pulses, normal rate, regular rhythm Respiratory/Chest: chest wall non-tender, lungs clear, normal breath sounds, no respiratory distress, no accessory muscle use Abdomen: normal bowel sounds, non tender, soft, no organomegaly, no mass Edema: no edema noted Arm (L), no edema noted Arm (R), no edema noted Leg (L), no edema noted Leg (R) Neurologic: stockbroker II-XII grossly normal, motor weakness Assessment/Plan Problem List: (1) UTI (urinary tract infection) ICD Codes: N39.0 - Urinary tract infection, site not specified SNOMED: 96474007 (2) Stroke ICD Codes: I63.9 - Cerebral infarction, unspecified SNOMED: 572870929 (3) Fever ICD Codes: R50.9 - Fever, unspecified SNOMED: 102915318 (4) Encephalopathy acute ICD Codes: G93.40 - Encephalopathy acute SNOMED: 6639512 (5) Pneumonia ICD Codes: J18.9 - Pneumonia, unspecified organism SNOMED: 133390012 Status: stable, progressing Assessment/Plan: iv abx follow up cultures ID eval apprecaited coumadin rx to goal inr 2-3 monitor for bleeding bp rx tylenol for fever pt/ot repeat covid for dc Alejo Green MD Aug 14, 2020 16:41
[2020-08-14] MEDS: Warfarin Sodium 1mg ORAL SCH (17:09)
--- NOTE | 2020-08-14 18:41 | NUR ---
Speech pathology Note (Bedside Dysphagia Evaluation) Brief Note: Mr. Wilde is a very pleasant 75 year old male suffered from LV thrombus, cardioembolic stroke resulted in L H/P admitted from [facility] on 08/11/2020 due to high fever. His significant past medical history include ischemic cardio myopathy, LVEF 35~40%, CAD, Afib, HTN and CVA. He depends on blood thinner and admission CBC is unremarkable and coagulation is on target range. The creatine is slightly elevated (1.7) and currently 1.3. Findings: Mr. Wilde is alert and oriented to self, place (hospital in [place]), year. His speech is clear and voice is intact. He was able to talk about his personal history. The oral cavity is clear. Missing some teeth. Mucosa is clear. He was able to self drink thin liquid via straw with his right hand without overt s.s of aspiration. Interpretation: 1. Functional oropharyngeal swallow Plan: 1. Pureed and thin liquid Karissa Rogers
--- NOTE | 2020-08-14 19:41 | NUR ---
NURSE HAND-OFF REPORT: Important Events on Shift: isolation removed, PCR negative Patient Status: full code, stable Diet: no added salt, soft easy chew Pending Orders: Pending Results/Labs: Pending MD notification: Latest Vital Signs: Temperature 96.6 , Pulse 78 , B/P 154 /82 , Respiratory Rate 20 , O2 SAT 96 , Room Air, O2 Flow Rate . Vital Sign Comment: EKG Rhythm: SR Rhythm change?: N MD Notified?: N -Dr. Abner ORTIZ Response: Message left await call Latest Arriaga Fall Score: 50 Fall Risk: High Risk Safety Measures: Call light Within Reach, Bed Alarm Zone 2, Side Rails Side Rails x2, Bed position Low and Locked. Fall Precautions: Yellow Socks Yellow Gown Door Sign Patient Fall Education Report given to NICOLÁS Carty.
--- NOTE | 2020-08-14 19:45 | NUR ---
NURSE NOTES: Important Events on Shift: Received report from Opal Omer RN. Pt is alert, VS WNL, oriented to name and date. Pt condition is stable. Will continue to monitor closely. Patient Status: stable throughout shift per report. Diet: CRUZ soft easy chew Pending Orders: Transfer to Med Surg Pending Results/Labs: BMP, vanco trough Pending MD notification: None Latest Vital Signs: Temperature 98.7 , Pulse 82 , B/P 136 /81 , Respiratory Rate 18 , O2 SAT 95 , Room Air, O2 Flow Rate . Vital Sign Comment: Stable throughout shift. EKG Rhythm: SR Rhythm change?: N Notified?: N -Dr. Abner ORTIZ Response: Message left await call Latest Arriaga Fall Score: 50 Fall Risk: High Risk Safety Measures: Call light Within Reach, Bed Alarm Zone 2, Side Rails Side Rails x2, Bed position Low and Locked. Fall Precautions: YES Yellow Socks YES Yellow Gown YES Door Sign YES Patient Fall Education YES Report given to .
[2020-08-14 20:00] VITALS: BP 138/79
[2020-08-14] MEDS: Atorvastatin 20mg tab ORAL SCH (21:57)
[2020-08-15] VITALS: BP 136/81
--- NOTE | 2020-08-15 01:15 | NUR ---
TRANSFER TO FLOOR: Patient transferred to [facility] 420-2, per Abner. Report given to Megan Finch LVN. Belongings accounted for and transferred with pt. Pt in stable condition. Endorsed plan of care.
--- NOTE | 2020-08-15 01:40 | NUR ---
NURSE NOTES: PATIENT TRANSFERRED FROM ROOM 219 BED 1 TO ROOM 420 BED 2 IN STABLE CONDITION. PATIENT ALERT/ORIENTED TO PERSON/PLACE, REALITY ORIENTATION PROVIDED. IV INTACT TO LEFT HAND/GAUGE 20, TOLERATING NS AT 75ML/HOUR. NO SIGNS AND SYMPTOMS OF ACUTE CARDIO RESPIRATORY DISTRESS/SHORTNESS OF BREATH, DENIES CHEST PAIN, NO PERIPHERAL EDEMA NOTED. ABDOMEN SOFT/NON DISTENDED/AUDIBLE BOWEL SOUNDS, NO REPORT OF N/V/D. CONDOM CATHETER INTACT, DRAINING CLOUDY YELLOW URINE VIA GRAVITY, NO SEDEMENT NOTED. LEFT UPPER EXTREMITY CONTRACTED, WEAKNESS NOTED TO BILATERAL LOWER EXTREMITIES, SKIN INTACT, OPTIFOAM NOTED TO BILATERAL HEELS/SACRAL. ORIENTATED PATIENT TO ROOM/ENVIRONMENT. SIDE RAILS UP X3/BED IN LOWEST POSITION FOR SAFETY, ENCOURAGED PATIENT TO UTILIZE CALL LIGHT FOR ASSISTANCE, VERBALIZED UNDERSTANDING. BED ALARM ENGAGED FOR SAFETY. FREQUENT ROUNDING FOR SAFETY/NEEDS. CONTINUE WITH CURRENT PLAN OF CARE. NAD.
--- NOTE | 2020-08-15 03:01 | Cardiology Progress Note ---
Subjective DATE OF SERVICE: Aug 14, 2020 No new fever spikes; had 102 yesterday. Still with mild cough. Covid 19 PCR is negative BP parameters more labile today, with occasional elevations. 2D Echo reveals EF 35% with apical thrombus. Objective Last 24 Hour Vital Signs Date Time Temp Pulse Resp B/P (MAP) Pulse Ox O2 Delivery O2 Flow Rate FiO2 08/15/20 00:00 98.7 82 18 136/81 (99) 95 08/14/20 21:58 75 138/79 08/14/20 21:00 Room Air 08/14/20 20:00 72 08/14/20 20:00 98.1 75 20 138/79 (98) 97 08/14/20 16:00 96.6 76 20 154/82 (106) 96 08/14/20 16:00 78 08/14/20 12:00 78 08/14/20 12:00 99.0 75 18 125/72 (89) 96 08/14/20 09:00 Room Air 08/14/20 08:31 77 137/79 08/14/20 08:30 137/79 08/14/20 08:00 98.9 77 20 137/79 (98) 97 08/14/20 08:00 81 08/14/20 04:04 97.5 78 20 111/76 (88) 98 08/14/20 03:45 67 ROS: unchanged from my evaluataion of 08/11/20 HEENT: normal ENT inspection RHYTHM: NSR, PVCs, PACs LUNGS: bilateral rhonchi CARDIAC: normal rate, regular rhythm, normal S1 and S2, systolic murmur - 1/6 apex ABDOMEN: normal bowel sounds, non tender, soft, no organomegaly EXTREMITIES: normal range of motion, no calf tenderness, No edema Laboratory Tests Test 08/14/20 10:10 Prothrombin Time 22.6 SEC (9.30-11.50) H Prothromb Time International Ratio 2.2 (0.9-1.1) H Assessment/Plan Assessment/Plan Healthcare assoc PNA UTI HHD Ischemic cmpy Chronic systolic/diastolic CHF LV thrombus on chronic anticoagulation CVA with dementia Non sustained ventricular ectopy Abx Resp rx Continue full anticoagulation Titrate anti-failure and anti-HTN regimen; carvedilol dose advanced yesterday.\ DC telemetry John Levine MD Aug 15, 2020 03:01
[2020-08-15 04:00] VITALS: BP 133/76
[2020-08-15 06:50] LABS: INR 1.7 (0.9-1.1)
[2020-08-15 06:57] LABS: ANION GAP 8 mmol/L (5-15); BLOOD UREA NITROGEN 14 mg/dL (7-18); CALCIUM 7.5 MG/DL (8.5-10.1); CARBON DIOXIDE 22 MMOL/L (21-32); CHLORIDE 102 MMOL/L (98-107); CREATININE 1.1 MG/DL (0.55-1.30); POTASSIUM 3.5 MMOL/L (3.5-5.1); SODIUM 132 MMOL/L (136-145)
--- NOTE | 2020-08-15 07:10 | NUR ---
NURSE HAND-OFF: Important Events on Shift:[TRANSFERRED FROM [facility] / [facility], [facility] BED 1,RESTED WELL, NAD.] Patient Status: [STABLE, AFEBRILE] Diet: [CRUZ, SOFT EASY CHEW] Pending Orders: [AM LABS] Pending Results/Labs:[] Pending MD notification:[] Latest Vital Signs: Temperature 98.9 , Pulse 85 , B/P 133 /76 , Respiratory Rate 18 , O2 SAT 99 , Room Air, O2 Flow Rate . Vital Sign Comment: [STABLE, AFEBRILE] Latest Arriaga Fall Score: 50 Fall Risk: High Risk Safety Measures: Call light Within Reach, Bed Alarm Zone 2, Side Rails Side Rails x2, Bed position Low and Locked. Fall Precautions: Yellow Socks Yellow Gown Door Sign Patient Fall Education Report given to [NICOLÁS OROZCO].
--- NOTE | 2020-08-15 07:45 | NUR ---
NURSE NOTES: Pt awake in bed, alert and oriented x2 reportedly, able to follow simple commands. Breathing even and unlabored. No c/o pain at this time. Condom cath in place. IV intact and running IVF. Bed in low position and locked. Bed alarm on. Call light within reach. Will continue to monitor.
[2020-08-15 08:00] VITALS: BP 145/74
[2020-08-15] MEDS: Carvedilol 12.5mg tab ORAL SCH ×2 (08:34→20:48)
--- NOTE | 2020-08-15 08:40 | NUR ---
NURSE NOTES: Sputum was collected. Pt was able to cough and spilt sputum into the cup.
--- NOTE | 2020-08-15 08:47 | General Progress Note ---
Subjective ROS Limited/Unobtainable: No Constitutional: Reports: weakness HEENT: Reports: no symptoms Cardiovascular: Reports: no symptoms Respiratory: Reports: cough Gastrointestinal/Abdominal: Reports: difficulty swallowing Genitourinary: Reports: no symptoms Neurologic/Psychiatric: Reports: pre-existing deficit Endocrine: Reports: no symptoms Hematologic/Lymphatic: Reports: anemia Allergies: Coded Allergies: No Known Allergies (Unverified , 05/27/14) All Systems: reviewed and negative except above Subjective no complaints. on iv abx. no fevers or chills. Ucx reviewed. ID and cards noted. no new complaints. covid pcr neg passed swallow eval. Objective Last 24 Hour Vital Signs Date Time Temp Pulse Resp B/P (MAP) Pulse Ox O2 Delivery O2 Flow Rate FiO2 08/15/20 08:34 81 145/74 08/15/20 08:34 145/74 08/15/20 08:00 98.0 81 18 145/74 (97) 99 08/15/20 04:00 98.9 85 18 133/76 (95) 99 08/15/20 00:00 98.7 82 18 136/81 (99) 95 08/14/20 21:58 75 138/79 08/14/20 21:00 Room Air 08/14/20 20:00 72 08/14/20 20:00 98.1 75 20 138/79 (98) 97 08/14/20 16:00 96.6 76 20 154/82 (106) 96 08/14/20 16:00 78 08/14/20 12:00 78 08/14/20 12:00 99.0 75 18 125/72 (89) 96 08/14/20 09:00 Room Air Intake and Output 08/14/20 08/15/20 19:00 07:00 Intake Total 360 ml 855 ml Output Total 700 ml Balance 360 ml 155 ml Intake Oral 360 ml 480 ml IV Total 375 ml Output Urine Total 700 ml # Voids 3 # Bowel Movements 2 1 Laboratory Tests 08/14/20 10:10: Prothrombin Time 22.6H, Prothromb Time International Ratio 2.2H 08/15/20 06:29: Prothrombin Time 17.8H, Prothromb Time International Ratio 1.7H, Sodium Level 132L, Potassium Level 3.5, Chloride Level 102, Carbon Dioxide Level 22, Anion Gap 8, Blood Urea Nitrogen 14, Creatinine 1.1, Estimat Glomerular Filtration Rate > 60, Glucose Level 94, Calcium Level 7.5L Height (Feet): 5 Height (Inches): 8.00 Weight (Pounds): 154 General Appearance: WD/WN, alert, confused EENT: normal ENT inspection Neck: non-tender, normal alignment, supple Cardiovascular: normal peripheral pulses, normal rate Respiratory/Chest: chest wall non-tender, lungs clear, normal breath sounds Objective General Appearance: WD/WN, alert, thin EENT: normal ENT inspection Neck: non-tender, normal alignment, supple Cardiovascular: normal peripheral pulses, normal rate, regular rhythm Respiratory/Chest: chest wall non-tender, lungs clear, normal breath sounds, no respiratory distress, no accessory muscle use Abdomen: normal bowel sounds, non tender, soft, no organomegaly, no mass Edema: no edema noted Arm (L), no edema noted Arm (R), no edema noted Leg (L), no edema noted Leg (R) Neurologic: company manager II-XII grossly normal, motor weakness Assessment/Plan Problem List: (1) UTI (urinary tract infection) ICD Codes: N39.0 - Urinary tract infection, site not specified SNOMED: 03092812 (2) Stroke ICD Codes: I63.9 - Cerebral infarction, unspecified SNOMED: 520299087 (3) Fever ICD Codes: R50.9 - Fever, unspecified SNOMED: 454003683 (4) Encephalopathy acute ICD Codes: G93.40 - Encephalopathy acute SNOMED: 1231775 (5) Pneumonia ICD Codes: J18.9 - Pneumonia, unspecified organism SNOMED: 075340648 Status: stable, progressing Assessment/Plan: iv abx follow up cultures ID eval apprecaited coumadin rx to goal inr 2-3 monitor for bleeding bp rx tylenol for fever pt/ot repeat covid neg pcxr Alejo Green MD Aug 15, 2020 08:47
--- NOTE | 2020-08-15 09:52 | NUR ---
RD ASSESSMENT & RECOMMENDATIONS SEE CARE ACTIVITY FOR COMPLETE ASSESSMENT DAILY ESTIMATED NEEDS: Needs based on Cardiac 70kg 25-30 kcals/kg 6038-0113 total kcals 1-1.3 g protein/kg 70-91 g total protein 25-30 mL/kg 5993-8727 total fluid mLs NUTRITION DIAGNOSIS: Swallowing difficulty R/T dysphagia w/ h/o CVA as evidenced by seen by OPTOMETRY DOCTOR w/ rec for pureed moist texture w/ thin liquids, noted w/ coughing. CURRENT DIET:CRUZ, soft easy chew PO DIET RECOMMENDATIONS: Liberalized regular w/ poor/variable PO (Texture per OPTOMETRY DOCTOR) ADDITIONAL RECOMMENDATIONS: * Daily calibrated bedscale wt * Ensure Enlive TID w/ meals * MVI x 1 * Consider appetite stimulant . .
--- NOTE | 2020-08-15 10:25 | NUR ---
NURSE NOTES: Speech therapist recommended pureed diet on this patient and patient also requested pureed. Dr. Green agreed and Rn changed order.
--- NOTE | 2020-08-15 11:20 | NUR ---
RADIOLOGY DEPT., CHEST X-RAY DONE.-P.DYE
--- NOTE | 2020-08-15 11:47 | Infectious Diseases Prog Note ---
Assessment/Plan Assessment/Plan antibiotics : ceftriaxone A 1. e.coli urinary tract infection. 2. Pneumonia. COVID 19 test negative 3. CVA. 4. Hypertension. P 1. continue ceftriaxone 2 more days 2. We will follow up cultures Subjective Constitutional: Denies: fever, chills Respiratory: Denies: shortness of breath, dry cough Gastrointestinal/Abdominal: Denies: nausea, vomiting, diarrhea Musculoskeletal: Denies: pain Allergies: Coded Allergies: No Known Allergies (Unverified , 05/27/14) Objective Last 24 Hour Vital Signs Date Time Temp Pulse Resp B/P (MAP) Pulse Ox O2 Delivery O2 Flow Rate FiO2 08/15/20 09:00 Room Air 08/15/20 08:34 81 145/74 08/15/20 08:34 145/74 08/15/20 08:00 98.0 81 18 145/74 (97) 99 08/15/20 04:00 98.9 85 18 133/76 (95) 99 08/15/20 00:00 98.7 82 18 136/81 (99) 95 08/14/20 21:58 75 138/79 08/14/20 21:00 Room Air 08/14/20 20:00 72 08/14/20 20:00 98.1 75 20 138/79 (98) 97 08/14/20 16:00 96.6 76 20 154/82 (106) 96 08/14/20 16:00 78 08/14/20 12:00 78 08/14/20 12:00 99.0 75 18 125/72 (89) 96 Height (Feet): 5 Height (Inches): 8.00 Weight (Pounds): 154 Respiratory/Chest: lungs clear Cardiovascular: normal rate, regular rhythm, no gallop/murmur Abdomen: soft, non tender Extremities: no edema Microbiology Date/Time Source Procedure Growth Status 08/14/20 03:00 Sputum Gram Stain - Final Complete 08/14/20 03:00 Sputum Sputum Culture - Final CULTURE NOT PERFORMED ... Complete Laboratory Tests Test 08/15/20 06:29 Prothrombin Time 17.8 SEC (9.30-11.50) H Prothromb Time International Ratio 1.7 (0.9-1.1) H Sodium Level 132 MMOL/L (136-145) L Potassium Level 3.5 MMOL/L (3.5-5.1) Chloride Level 102 MMOL/L (98-107) Carbon Dioxide Level 22 MMOL/L (21-32) Anion Gap 8 mmol/L (5-15) Blood Urea Nitrogen 14 mg/dL (7-18) Creatinine 1.1 MG/DL (0.55-1.30) Estimat Glomerular Filtration Rate > 60 mL/min (>60) Glucose Level 94 MG/DL (74-106) Calcium Level 7.5 MG/DL (8.5-10.1) L Current Medications Medications (Trade) Dose Ordered Sig/Leo Route PRN Reason Start Time Stop Time Status Last Admin Dose Admin Acetaminophen (Tylenol) 650 mg Q4H PRN ORAL Mild Pain (Pain Scale 1-3) 08/12/20 01:15 09/11/20 01:14 08/12/20 22:33 Acetaminophen (Tylenol) 650 mg Q4H PRN ORAL FEVER >100.5 08/12/20 22:15 09/11/20 22:14 08/13/20 22:07 Atorvastatin Calcium (Lipitor) 20 mg BEDTIME ORAL 08/12/20 21:00 11/10/20 20:59 08/14/20 21:57 Benazepril HCl (Lotensin) 40 mg DAILY ORAL 08/12/20 09:00 09/11/20 08:59 08/15/20 08:34 Carvedilol (Coreg) 12.5 mg EVERY 12 HOURS ORAL 08/14/20 09:00 09/13/20 08:59 08/15/20 08:34 Ceftriaxone Sodium 1 gm/ Dextrose 55 ml @ 110 mls/hr Q24H IVPB 08/14/20 13:00 08/21/20 12:59 08/14/20 13:31 Guaifenesin/ Dextromethorphan (Robitussin DM Syrup) 10 ml Q4H PRN ORAL For Cough 08/12/20 01:15 11/10/20 01:14 Pantoprazole (Protonix) 40 mg DAILY ORAL 08/12/20 09:00 09/11/20 08:59 08/15/20 08:34 Warfarin Sodium (Warfarin Sod) 3 mg DAILY@17 ORAL 08/12/20 17:00 08/17/20 16:59 08/14/20 17:09 Homero Woodard MD Aug 15, 2020 11:47
[2020-08-15 12:00] VITALS: BP 122/79
[2020-08-15] MEDS: cefTRIAXone 1 GM in D5W 55 ML IVPB SCH (14:08)
--- NOTE | 2020-08-15 14:39 | Diagnostic Imaging Report ---
Indication: Cough Technique: One view of the chest Comparison: 08/11/2020 Findings: Right infrahilar opacity is again demonstrated. There is more questionable retrocardiac consolidation. Cardiomegaly persists. Impression: Unchanged right infrahilar opacity, infiltrate versus mass. Recommend follow-up imaging to resolution, with consideration for CT should opacity fail to resolve
[2020-08-15 16:00] VITALS: BP 114/65
[2020-08-15] MEDS: Warfarin Sodium 1mg ORAL SCH (17:00)
--- NOTE | 2020-08-15 17:53 | Cardiology Progress Note ---
Subjective DATE OF SERVICE: Aug 15, 2020 No new fever spikes. Still with mild cough. Covid 19 PCR is negative BP parameters more stable today. 2D Echo reveals EF 35% with apical thrombus. CXR (08/15) infiltr vs mass Objective Last 24 Hour Vital Signs Date Time Temp Pulse Resp B/P (MAP) Pulse Ox O2 Delivery O2 Flow Rate FiO2 08/15/20 16:00 98.0 78 18 114/65 (81) 99 08/15/20 12:00 98.5 80 18 122/79 (93) 99 08/15/20 09:00 Room Air 08/15/20 08:34 81 145/74 08/15/20 08:34 145/74 08/15/20 08:00 98.0 81 18 145/74 (97) 99 08/15/20 04:00 98.9 85 18 133/76 (95) 99 08/15/20 00:00 98.7 82 18 136/81 (99) 95 08/14/20 21:58 75 138/79 08/14/20 21:00 Room Air 08/14/20 20:00 72 08/14/20 20:00 98.1 75 20 138/79 (98) 97 ROS: unchanged from my evaluataion of 08/11/20 HEENT: normal ENT inspection RHYTHM: NSR, PVCs, PACs LUNGS: other - few rhonchi CARDIAC: normal rate, regular rhythm, normal S1 and S2, systolic murmur - 1/6 apex ABDOMEN: normal bowel sounds, non tender, soft, no organomegaly EXTREMITIES: normal range of motion, no calf tenderness, No edema, other - left paresis Laboratory Tests Test 08/15/20 06:29 Prothrombin Time 17.8 SEC (9.30-11.50) H Prothromb Time International Ratio 1.7 (0.9-1.1) H Sodium Level 132 MMOL/L (136-145) L Potassium Level 3.5 MMOL/L (3.5-5.1) Chloride Level 102 MMOL/L (98-107) Carbon Dioxide Level 22 MMOL/L (21-32) Anion Gap 8 mmol/L (5-15) Blood Urea Nitrogen 14 mg/dL (7-18) Creatinine 1.1 MG/DL (0.55-1.30) Estimat Glomerular Filtration Rate > 60 mL/min (>60) Glucose Level 94 MG/DL (74-106) Calcium Level 7.5 MG/DL (8.5-10.1) L Microbiology Date/Time Source Procedure Growth Status 08/14/20 03:00 Sputum Gram Stain - Final Complete 08/14/20 03:00 Sputum Sputum Culture - Final CULTURE NOT PERFORMED ... Complete Assessment/Plan Assessment/Plan Healthcare assoc PNA Abnormal CXR - r/o mass UTI HHD Ischemic cmpy Chronic systolic/diastolic CHF LV thrombus on chronic anticoagulation CVA with dementia Non sustained ventricular ectopy Abx Resp rx Continue full anticoagulation Titrate anti-failure and anti-HTN regimen; carvedilol dose advanced recently. OFF telemetry Check CT chest John Levine MD Aug 15, 2020 17:53
--- NOTE | 2020-08-15 19:48 | NUR ---
NURSE HAND-OFF: Important Events on Shift:[CXR done] Patient Status: [stable] Diet: [No added salt, puree moist] Pending Orders: [] Pending Results/Labs:[] Pending MD notification:[] Latest Vital Signs: Temperature 98.0 , Pulse 78 , B/P 114 /65 , Respiratory Rate 18 , O2 SAT 99 , Room Air, O2 Flow Rate . Vital Sign Comment: [stable] Latest Arriaga Fall Score: 50 Fall Risk: High Risk Safety Measures: Call light Within Reach, Bed Alarm Zone 2, Side Rails Side Rails x2, Bed position Low and Locked. Fall Precautions: Yellow Socks Yellow Gown Door Sign Patient Fall Education Report given to [NICOLÁS Wolf].
--- NOTE | 2020-08-15 20:00 | NUR ---
NURSE NOTES: Received patient awake, verbal, follows simple command, resting in bed, afebrile, with stable vital signs.
[2020-08-15 20:27] VITALS: BP 144/93
[2020-08-15] MEDS: Atorvastatin 20mg tab ORAL SCH (20:48)
[2020-08-16 00:17] VITALS: BP 136/86
[2020-08-16 04:00] VITALS: BP 156/81
--- NOTE | 2020-08-16 07:06 | NUR ---
HAND-OFF: Report given to Koki Salgado RN.
--- NOTE | 2020-08-16 07:45 | NUR ---
NURSE NOTES: Received report from NICOLÁS Wolf. Pt awake in bed, alert and oriented x2 reportedly, able to follow simple commands. Breathing even and unlabored. No c/o pain at this time. Condom cath in place. IV intact and running IVF. Bed in low position and locked. Bed alarm on. Call light within reach. Will continue to monitor.
[2020-08-16 08:00] VITALS: BP 123/70
[2020-08-16] MEDS: Carvedilol 12.5mg tab ORAL SCH ×2 (08:50→21:14)
--- NOTE | 2020-08-16 09:06 | General Progress Note ---
Subjective ROS Limited/Unobtainable: No Constitutional: Reports: malaise, weakness HEENT: Reports: no symptoms Cardiovascular: Reports: no symptoms Respiratory: Reports: no symptoms Gastrointestinal/Abdominal: Reports: no symptoms Genitourinary: Reports: no symptoms Neurologic/Psychiatric: Reports: pre-existing deficit Endocrine: Reports: no symptoms Hematologic/Lymphatic: Reports: no symptoms Allergies: Coded Allergies: No Known Allergies (Unverified , 05/27/14) All Systems: reviewed and negative except above Subjective no complaints. on iv abx. no fevers or chills. Ucx reviewed. ID and cards noted. no new complaints. covid pcr neg passed swallow eval. Objective Last 24 Hour Vital Signs Date Time Temp Pulse Resp B/P (MAP) Pulse Ox O2 Delivery O2 Flow Rate FiO2 08/16/20 08:50 82 123/70 08/16/20 08:49 123/70 08/16/20 08:00 97.4 82 17 123/70 (87) 98 08/16/20 04:00 97.3 79 17 156/81 (106) 99 08/16/20 00:17 97.6 83 18 136/86 (103) 97 08/15/20 20:48 90 144/93 08/15/20 20:33 Room Air 08/15/20 20:27 98.0 90 18 144/93 (110) 94 08/15/20 16:00 98.0 78 18 114/65 (81) 99 08/15/20 12:00 98.5 80 18 122/79 (93) 99 Intake and Output 08/15/20 08/16/20 19:00 07:00 Intake Total 600 ml 360 ml Output Total 400 ml 500 ml Balance 200 ml -140 ml Other 600 ml 360 ml Output Urine Total 400 ml 500 ml # Bowel Movements 1 1 Height (Feet): 5 Height (Inches): 8.00 Weight (Pounds): 154 Objective General Appearance: WD/WN, alert, thin EENT: normal ENT inspection Neck: non-tender, normal alignment, supple Cardiovascular: normal peripheral pulses, normal rate, regular rhythm Respiratory/Chest: chest wall non-tender, lungs clear, normal breath sounds, no respiratory distress, no accessory muscle use Abdomen: normal bowel sounds, non tender, soft, no organomegaly, no mass Edema: no edema noted Arm (L), no edema noted Arm (R), no edema noted Leg (L), no edema noted Leg (R) Neurologic: cardiovascular surgical tech II-XII grossly normal, motor weakness Assessment/Plan Problem List: (1) UTI (urinary tract infection) ICD Codes: N39.0 - Urinary tract infection, site not specified SNOMED: 87861683 (2) Stroke ICD Codes: I63.9 - Cerebral infarction, unspecified SNOMED: 870790139 (3) Fever ICD Codes: R50.9 - Fever, unspecified SNOMED: 398647015 (4) Encephalopathy acute ICD Codes: G93.40 - Encephalopathy acute SNOMED: 9446028 (5) Pneumonia ICD Codes: J18.9 - Pneumonia, unspecified organism SNOMED: 172108291 Status: stable, progressing Assessment/Plan: iv abx follow up cultures coumadin rx to goal inr 2-3 monitor for bleeding bp rx tylenol for fever pt/ot repeat covid neg dc planning tomorrow after completion of abx Alejo Green MD Aug 16, 2020 09:06
[2020-08-16 09:56] LABS: INR 1.3 (0.9-1.1)
--- NOTE | 2020-08-16 11:43 | NUR ---
DISCHARGE PLANNING PATIENT HAS BEEN REFERRED BACK TO [facility] P [phone] Addendum: 08/16/20 at 1543 by ALIZA DOAN LVN CM PATIENT ACCEPTED TO RETURN UPON DC TO ROOM 230-1 SKILLED RN TO [facility] TRANSPORTATION UPON DC WITH [facility] EXT [id number]
--- NOTE | 2020-08-16 11:45 | Infectious Diseases Prog Note ---
Assessment/Plan Assessment/Plan antibiotics : ceftriaxone A 1. e.coli urinary tract infection. 2. Pneumonia. COVID 19 test negative 3. CVA. 4. Hypertension. P 1. continue ceftriaxone 1 more day 2. We will follow up cultures Subjective ROS Limited/Unobtainable: Yes Allergies: Coded Allergies: No Known Allergies (Unverified , 05/27/14) Objective Last 24 Hour Vital Signs Date Time Temp Pulse Resp B/P (MAP) Pulse Ox O2 Delivery O2 Flow Rate FiO2 08/16/20 09:00 Room Air 08/16/20 08:50 82 123/70 08/16/20 08:49 123/70 08/16/20 08:00 97.4 82 17 123/70 (87) 98 08/16/20 04:00 97.3 79 17 156/81 (106) 99 08/16/20 00:17 97.6 83 18 136/86 (103) 97 08/15/20 20:48 90 144/93 08/15/20 20:33 Room Air 08/15/20 20:27 98.0 90 18 144/93 (110) 94 08/15/20 16:00 98.0 78 18 114/65 (81) 99 08/15/20 12:00 98.5 80 18 122/79 (93) 99 Height (Feet): 5 Height (Inches): 8.00 Weight (Pounds): 154 Respiratory/Chest: lungs clear Cardiovascular: normal rate, regular rhythm, no gallop/murmur Abdomen: soft, non tender Extremities: no edema Microbiology Date/Time Source Procedure Growth Status 08/15/20 08:00 Sputum Gram Stain Pending Resulted 08/15/20 08:00 Sputum Sputum Culture - Preliminary NORMAL UPPER RESPIRATORY HAIDER AT 24 ... Resulted 08/14/20 03:00 Sputum Gram Stain - Final Complete 08/14/20 03:00 Sputum Sputum Culture - Final CULTURE NOT PERFORMED ... Complete Laboratory Tests Test 08/16/20 08:35 Prothrombin Time 13.8 SEC (9.30-11.50) H Prothromb Time International Ratio 1.3 (0.9-1.1) H Current Medications Medications (Trade) Dose Ordered Sig/Leo Route PRN Reason Start Time Stop Time Status Last Admin Dose Admin Acetaminophen (Tylenol) 650 mg Q4H PRN ORAL Mild Pain (Pain Scale 1-3) 08/12/20 01:15 09/11/20 01:14 08/12/20 22:33 Acetaminophen (Tylenol) 650 mg Q4H PRN ORAL FEVER >100.5 08/12/20 22:15 09/11/20 22:14 08/13/20 22:07 Atorvastatin Calcium (Lipitor) 20 mg BEDTIME ORAL 08/12/20 21:00 11/10/20 20:59 08/15/20 20:48 Benazepril HCl (Lotensin) 40 mg DAILY ORAL 08/12/20 09:00 09/11/20 08:59 08/16/20 08:49 Carvedilol (Coreg) 12.5 mg EVERY 12 HOURS ORAL 08/14/20 09:00 09/13/20 08:59 08/16/20 08:50 Ceftriaxone Sodium 1 gm/ Dextrose 55 ml @ 110 mls/hr Q24H IVPB 08/14/20 13:00 08/21/20 12:59 08/15/20 14:08 Guaifenesin/ Dextromethorphan (Robitussin DM Syrup) 10 ml Q4H PRN ORAL For Cough 08/12/20 01:15 11/10/20 01:14 Pantoprazole (Protonix) 40 mg DAILY ORAL 08/12/20 09:00 09/11/20 08:59 08/16/20 08:49 Warfarin Sodium (Warfarin Sod) 3 mg DAILY@17 ORAL 08/12/20 17:00 08/17/20 16:59 08/15/20 17:00 Homero Woodard MD Aug 16, 2020 11:45
[2020-08-16 12:00] VITALS: BP 114/59
[2020-08-16] MEDS: cefTRIAXone 1 GM in D5W 55 ML IVPB SCH (13:03)
--- NOTE | 2020-08-16 15:44 | NUR ---
CASE MANAGEMENT:REVIEW SI;COVID PNEUMONIA. UTI. 98.0 90 18 144/93 94% ON RA IS;ROCEPHIN IV QD COREG PO BID PROTONIX PO QD LOTENSIN PO QD MED SURG STATUS DCP;FROM [facility] PLAN; DC BACK TO SNF UPON COMPLETION OF IV ABX
[2020-08-16 16:00] VITALS: BP 134/69
--- NOTE | 2020-08-16 16:04 | Diagnostic Imaging Report ---
Clinical Indication: Chest pain, shortness of breath, abnormal chest radiograph Technique: Spiral acquisitions obtained through the chest. No IV contrast utilized, per referring physician request. Multiplanar reconstructions generated. Total dose length product 390 mGycm. CTDIvol(s) 7 mGy. Dose reduction achieved using automated exposure control Comparison: No comparison CT scan. Reference made to chest radiograph one day earlier Findings: There is a moderate right pleural effusion. There is trace left pleural fluid. There is some atelectasis and consolidation of the infrahilar right lower lobe. Minimal compressive atelectasis of the posterior left lung is also noted. The upper lobes demonstrate centrilobular emphysema. There are some bullous changes in the right lower lobe. There is mosaic attenuation pattern of the aerated portions of both lungs. The heart is enlarged. There is calcification of the left ventricular apex indicating a calcified left ventricular aneurysm. There is minimal pericardial thickening. The esophagus is unremarkable. There are coronary artery calcifications which are fairly extensive. No mediastinal or hilar mass or adenopathy. The included portion of the thyroid is unremarkable. No axillary or chest wall mass or adenopathy. The included upper abdominal viscera are unremarkable. Impression: Cardiomegaly, with evidence of a calcified left ventricular aneurysm Right greater than left pleural effusions Evidence of COPD Mosaic pulmonary parenchymal perfusion pattern this is a nonspecific finding but in this case is likely due to a combination of pulmonary edema and COPD changes. Right infrahilar consolidation and, mostly, atelectasis, probably accounting for the finding reported on recent chest radiograph or graft dense coronary artery calcifications The CT scanner at [facility] is accredited by the [employer] and the scans are performed using protocols designed to limit radiation exposure to as low as reasonably achievable to attain images of sufficient resolution adequate for diagnostic evaluation.
[2020-08-16] MEDS: Warfarin Sodium 1mg ORAL SCH (17:00)
--- NOTE | 2020-08-16 19:07 | NUR ---
NURSE HAND-OFF: Important Events on Shift:[ABX given] Patient Status: [stable] Diet: [No added salt puree moist] Pending Orders: [] Pending Results/Labs:[] Pending MD notification:[] Latest Vital Signs: Temperature 98.1 , Pulse 75 , B/P 134 /69 , Respiratory Rate 18 , O2 SAT 98 , Room Air, O2 Flow Rate . Vital Sign Comment: [stable] Latest Arriaga Fall Score: 50 Fall Risk: High Risk Safety Measures: Call light Within Reach, Bed Alarm Zone 2, Side Rails Side Rails x2, Bed position Low and Locked. Fall Precautions: Yellow Socks Yellow Gown Door Sign Patient Fall Education Report given to [Dede,RN].
--- NOTE | 2020-08-16 19:25 | NUR ---
NURSE NOTES: RECEIVED PATIENT FROM NICOLÁS ROCA. PATIENT IS AWAKE, CALM, RESTING IN BED, AAOX2, ON ROOM AIR, NO ACUTE DISTRESS NOTED. PATIENT DENIES PAIN AND SOB. VSS. PIV ON LEFT HAND INTACT AND PATENT. CONDOM CATH IN PLACE, DRAINING WELL. BED IS LOCKED AND LOW, BED ALARMS ACTIVE, SIDE RAILS UPX2 AND CALL LIGHT IS WITHIN REACH. WILL CONTINUE TO MONITOR.
[2020-08-16 20:00] VITALS: BP 138/81
--- NOTE | 2020-08-16 20:51 | Cardiology Progress Note ---
Subjective DATE OF SERVICE: Aug 16, 2020 No new fever spikes. Still with mild cough, but no SOB. Covid 19 PCR is negative BP parameters remain stable. 2D Echo reveals EF 35% with apical thrombus. CXR (08/15) infiltr vs mass CT scan revealed right consolidation and atelectasis, but no mass. Objective Last 24 Hour Vital Signs Date Time Temp Pulse Resp B/P (MAP) Pulse Ox O2 Delivery O2 Flow Rate FiO2 08/16/20 16:00 98.1 75 18 134/69 (90) 98 08/16/20 12:00 97.5 76 18 114/59 (77) 98 08/16/20 09:00 Room Air 08/16/20 08:50 82 123/70 08/16/20 08:49 123/70 08/16/20 08:00 97.4 82 17 123/70 (87) 98 08/16/20 04:00 97.3 79 17 156/81 (106) 99 08/16/20 00:17 97.6 83 18 136/86 (103) 97 08/15/20 20:48 90 144/93 ROS: unchanged from my evaluataion of 08/11/20 HEENT: normal ENT inspection RHYTHM: NSR, PVCs, PACs LUNGS: other - few rhonchi CARDIAC: normal rate, regular rhythm, normal S1 and S2, systolic murmur - 1/6 apex ABDOMEN: normal bowel sounds, non tender, soft, no organomegaly EXTREMITIES: normal range of motion, no calf tenderness, No edema, other - left paresis Laboratory Tests Test 08/16/20 08:35 Prothrombin Time 13.8 SEC (9.30-11.50) H Prothromb Time International Ratio 1.3 (0.9-1.1) H Microbiology Date/Time Source Procedure Growth Status 08/15/20 08:00 Sputum Gram Stain - Final Resulted 08/15/20 08:00 Sputum Sputum Culture - Preliminary NORMAL UPPER RESPIRATORY HAIDER AT 24 ... Resulted 08/14/20 03:00 Sputum Gram Stain - Final Complete 08/14/20 03:00 Sputum Sputum Culture - Final CULTURE NOT PERFORMED ... Complete Assessment/Plan Assessment/Plan Healthcare assoc PNA Right lung consolidation c/w PNA UTI HHD Ischemic cmpy Chronic systolic/diastolic CHF LV thrombus on chronic anticoagulation CVA with dementia Non sustained ventricular ectopy Abx Resp rx Continue full anticoagulation Titrate anti-failure and anti-HTN regimen; carvedilol dose advanced recently. John Levine MD Aug 16, 2020 20:51
[2020-08-16] MEDS: Atorvastatin 20mg tab ORAL SCH (21:14)
[2020-08-17] VITALS: BP 128/68
[2020-08-17 04:00] VITALS: BP 131/70
--- NOTE | 2020-08-17 07:37 | NUR ---
HAND-OFF: Report given to NICOLÁS Cordon.
[2020-08-17 08:00] VITALS: BP 117/65
--- NOTE | 2020-08-17 08:00 | NUR ---
NURSE NOTES: received pt in bed, in room air, in NAD. Breathing even, unlabored, no complaint of pain or discomfort. Left hand gauge [address], saline locked, pervious. Call light within reach, side rails up x2, bed locked, in the lowest position possible. Patient has external urnary catheter draining andrea color urine. Will continue monitoring pt and following up with the plan of care.
[2020-08-17] MEDS ORDERED: COREG12.5 MG ORAL (08:12)
[2020-08-17] MEDS: Carvedilol 12.5mg tab ORAL SCH (09:00)
[2020-08-17 09:03] LABS: INR 1.3 (0.9-1.1)
--- NOTE | 2020-08-17 11:27 | NUR ---
NURSE NOTES: Full report given to NICOLÁS Silva from [facility]. Assigned room 230 bed 1. Shira requested nurse to leave external urinary catheter in place. Reported to NICOLÁS Silva pt has still to receive last dose of IV antibiotic at 1300, and can be discharged after that.
[2020-08-17 12:00] VITALS: BP 121/59
[2020-08-17] MEDS: cefTRIAXone 1 GM in D5W 55 ML IVPB SCH (12:11)
--- NOTE | 2020-08-17 14:48 | NUR ---
NURSE NOTES: patient is being prepared for discharge back to [facility]. Patient received last dose of IV atb Rocephin as ordered by ID . Taken IV access off, no bleeding noted after site compression. Notified patient's daughter Hannah of the discharge back to [facility], left message. Changed dressing of sacral DTI, no open wound. Changed dressing of RFA skin tear, healed and scabbed. Patient in stable condition and VS, no complaint of pain or discomfort, in NAD.
--- NOTE | 2020-08-17 15:28 | Infectious Diseases Prog Note ---
Assessment/Plan Assessment/Plan A 1. E.coli urinary tract infection.treated 2. Pneumonia. COVID19 test negative 3. CVA. 4. Hypertension. P 1. Finished ceftriaxone course 2. Agree with discharge to SNF Subjective ROS Limited/Unobtainable: Yes Constitutional: Reports: no symptoms Respiratory: Reports: no symptoms Gastrointestinal/Abdominal: Reports: no symptoms Genitourinary: Reports: no symptoms Allergies: Coded Allergies: No Known Allergies (Unverified , 05/27/14) Objective Last 24 Hour Vital Signs Date Time Temp Pulse Resp B/P (MAP) Pulse Ox O2 Delivery O2 Flow Rate FiO2 08/17/20 12:00 97.3 75 17 121/59 (79) 98 08/17/20 09:00 Room Air 08/17/20 09:00 89 117/65 08/17/20 09:00 117/65 08/17/20 08:00 97.2 89 17 117/65 (82) 95 08/17/20 04:00 98.1 78 16 131/70 (90) 97 08/17/20 00:00 97.7 75 17 128/68 (88) 99 08/16/20 21:14 86 138/81 08/16/20 21:00 Room Air 08/16/20 20:00 97.4 86 17 138/81 (100) 98 08/16/20 16:00 98.1 75 18 134/69 (90) 98 Height (Feet): 5 Height (Inches): 8.00 Weight (Pounds): 154 General Appearance: no acute distress HEENT: mucous membranes moist Respiratory/Chest: lungs clear Cardiovascular: normal rate Abdomen: soft, non tender Genitourinary: other - codom catheter Extremities: no edema Neurologic/Psychiatric: alert, responsive Microbiology Date/Time Source Procedure Growth Status 08/15/20 08:00 Sputum Gram Stain - Final Complete 08/15/20 08:00 Sputum Sputum Culture - Final NORMAL UPPER RESPIRATORY HAIDER PRESENT Complete Laboratory Tests Test 08/17/20 08:40 Prothrombin Time 13.7 SEC (9.30-11.50) H Prothromb Time International Ratio 1.3 (0.9-1.1) H Current Medications Medications (Trade) Dose Ordered Sig/Leo Route PRN Reason Start Time Stop Time Status Last Admin Dose Admin Acetaminophen (Tylenol) 650 mg Q4H PRN ORAL Mild Pain (Pain Scale 1-3) 08/12/20 01:15 09/11/20 01:14 08/12/20 22:33 Acetaminophen (Tylenol) 650 mg Q4H PRN ORAL FEVER >100.5 08/12/20 22:15 09/11/20 22:14 08/13/20 22:07 Atorvastatin Calcium (Lipitor) 20 mg BEDTIME ORAL 08/12/20 21:00 11/10/20 20:59 08/16/20 21:14 Benazepril HCl (Lotensin) 40 mg DAILY ORAL 08/12/20 09:00 09/11/20 08:59 08/16/20 08:49 Carvedilol (Coreg) 12.5 mg EVERY 12 HOURS ORAL 08/14/20 09:00 09/13/20 08:59 08/16/20 21:14 Ceftriaxone Sodium 1 gm/ Dextrose 55 ml @ 110 mls/hr Q24H IVPB 08/14/20 13:00 08/21/20 12:59 08/17/20 12:11 Guaifenesin/ Dextromethorphan (Robitussin DM Syrup) 10 ml Q4H PRN ORAL For Cough 08/12/20 01:15 11/10/20 01:14 Pantoprazole (Protonix) 40 mg DAILY ORAL 08/12/20 09:00 09/11/20 08:59 08/17/20 09:10 Warfarin Sodium (Warfarin Sod) 3 mg DAILY@17 ORAL 08/12/20 17:00 08/17/20 16:59 08/16/20 17:00 Davey De Leon MD Aug 17, 2020 15:28
--- NOTE | 2020-08-17 15:30 | NUR ---
NURSE NOTES: patient is being transported back to [facility] via [facility]. He leaves with all his belongings, unable to sign off belongings list. In stable condition and VS, no complaints at this time. Leaves with external urinary catheter per RN Shira from the facility, request.
--- NOTE | 2020-08-17 17:04 | Cardiology Progress Note ---
Subjective DATE OF SERVICE: Aug 17, 2020 No fever spikes. Minimal cough, but no SOB. Covid 19 PCR is negative BP parameters remain stable. 2D Echo reveals EF 35% with apical thrombus. CXR (08/15) infiltr vs mass CT scan revealed right consolidation and atelectasis, but no mass. Objective Last 24 Hour Vital Signs Date Time Temp Pulse Resp B/P (MAP) Pulse Ox O2 Delivery O2 Flow Rate FiO2 08/17/20 12:00 97.3 75 17 121/59 (79) 98 08/17/20 09:00 Room Air 08/17/20 09:00 89 117/65 08/17/20 09:00 117/65 08/17/20 08:00 97.2 89 17 117/65 (82) 95 08/17/20 04:00 98.1 78 16 131/70 (90) 97 08/17/20 00:00 97.7 75 17 128/68 (88) 99 08/16/20 21:14 86 138/81 08/16/20 21:00 Room Air 08/16/20 20:00 97.4 86 17 138/81 (100) 98 ROS: unchanged from my evaluataion of 08/11/20 HEENT: normal ENT inspection RHYTHM: NSR, PVCs, PACs LUNGS: other - few rhonchi CARDIAC: normal rate, regular rhythm, normal S1 and S2, systolic murmur - 1/6 apex ABDOMEN: normal bowel sounds, non tender, soft, no organomegaly EXTREMITIES: normal range of motion, no calf tenderness, No edema, other - left paresis Laboratory Tests Test 08/17/20 08:40 Prothrombin Time 13.7 SEC (9.30-11.50) H Prothromb Time International Ratio 1.3 (0.9-1.1) H Microbiology Date/Time Source Procedure Growth Status 08/15/20 08:00 Sputum Gram Stain - Final Complete 08/15/20 08:00 Sputum Sputum Culture - Final NORMAL UPPER RESPIRATORY HAIDER PRESENT Complete Assessment/Plan Assessment/Plan Healthcare assoc PNA Right lung consolidation c/w PNA UTI HHD Ischemic cmpy Chronic systolic/diastolic CHF LV thrombus on chronic anticoagulation CVA with dementia Non sustained ventricular ectopy Abx Resp rx Continue full anticoagulation Maintain current anti-failure and anti-HTN regimen, including advanced carvedilol dose. Stable to complete recovery at [facility] John Levine MD Aug 17, 2020 17:04
--- NOTE | 2020-08-18 03:15 | Discharge Summary ---
DATE OF ADMISSION: 08/12/2020 DATE OF DISCHARGE: 08/17/2020 ADMISSION DIAGNOSES: 1. Sepsis. 2. UTI. 3. History of stroke. 4. History of LV thrombus. 5. Hypertension 6. Chronic kidney disease. DISCHARGE DIAGNOSES: 1. Sepsis. 2. UTI. 3. History of stroke. 4. History of LV thrombus. 5. Hypertension 6. Chronic kidney disease. HOSPITAL COURSE: The patient was admitted with complaints of sepsis secondary to UTI. He was ruled out for COVID. He received broad-spectrum IV antibiotics. He was gently hydrated. On discharge, he is stable. He completed all his antibiotic therapy while in-house and will be followed up at the assisted facility in one to two days. DISCHARGE MEDICATIONS: Please see discharge medication list for discharge medications. DIET: Pureed diet. ACTIVITY: Ad-sydney. Alejo Green M.D. DR: Tj JOB#: [id number] CC:
== END 2020-08-17 15:30 | DRG 871 ==
LOC: EDBD 22:28 → EMR 22:45 → 2E 22:53 → EDBEDREQ 08-12 00:34 → 4E 08-15 01:41
DX: A41.9 Sepsis, unspecified organism (principal); J18.9 Pneumonia, unspecified organism; N39.0 Urinary tract infection, site not specified; I69.354 Hemiplegia and hemiparesis following cerebral infarction affecting left non-dominant side; I13.0 Hypertensive heart and chronic kidney disease with heart failure and stage 1 through stage 4 chronic kidney disease, or unspecified chronic kidney disease; I50.42 Chronic combined systolic (congestive) and diastolic (congestive) heart failure; N18.9 Chronic kidney disease, unspecified; I48.0 Paroxysmal atrial fibrillation; F03.90 Unspecified dementia, unspecified severity, without behavioral disturbance, psychotic disturbance, mood disturbance, and anxiety; I25.5 Ischemic cardiomyopathy; B96.20 Unspecified Escherichia coli [E. coli] as the cause of diseases classified elsewhere; I51.3 Intracardiac thrombosis, not elsewhere classified; Z79.01 Long term (current) use of anticoagulants; I69.319 Unspecified symptoms and signs involving cognitive functions following cerebral infarction; I49.3 Ventricular premature depolarization
CPT/HCPCS: 36415; 71045; 71250; 80048; 80053; 80202; 81003; 82248; 82550; 82553; 83605; 84484; 85025; 85610; 85730; 86710; 87040; 87070; 87081; 87086; 87181; 87205; 93005; 93306; 96361; 96365; 96367; 99285; J7030